=== PATIENT | female | born 1950 | race Caucasian/White ===

== ENCOUNTER 2017-02-08 17:38 | Inpatient (IN) ==
--- NOTE | 2017-02-08 18:28 | IRU History & Physical Report ---
[facility] Date: [id number] Chief complaint: My shoulder hurts and I'm weak HPI: Irina was evaluated in her room with her present. She states that she tripped over a dog leash on 01/30/2017 at her home. She fell to the ground fracturing both shoulders. Patient was evaluated and sent to [facility] where she underwent a right reverse total shoulder procedure on February 03, 2017. The left shoulder was not operated upon. However she is very debilitated as a result of this. Cannot really safely use a walker at this point in time. She states that she is highly motivated to get stronger and get back home. She had a closed fracture of the greater tuberosity of the left humerus and a four-part closed fracture dislocation of the right shoulder. Prior to this event she was independent with grooming, bathing, upper and lower extremity dressing, toileting and transfers as well as ambulation. She is now moderate assist for grooming, bathing and maximum assist for upper and lower extremity dressing. She is minimal assist for toileting, transfers and 18. She is maximum assist for walking. She did not use an assistive device at home prior to this. She does have history of morbid obesity with BMI around 49. She has diabetes mellitus type 2 and normally takes metformin. However recently her blood sugars have become less well controlled in the hospital and she has received Humalog in varying doses. She does not check her blood sugars at home but states that her most recent A1c was 6.9%. She has other medical issues including fibromyalgia, depression, chronic low back pain and reflux esophagitis. She is at risk for wound infection. Her morbid obesity increases the complexity of her situation in addition to her bilateral fractures. She reports that she is been disabled for about 5 years on the basis of back pain (no surgery has been performed there), "hiatal hernia", heel pain and knee problems. The following medical conditions are noted and require physician monitoring and treatment. 1. Diabetes type 2 currently requiring insulin at least on a short-term basis. 2. Morbid obesity with BMI 49 3. Fibromyalgia 4. Hypertension 5. Recent shoulder surgery and wound which is at increased risk of infection due to her diabetes and obesity The following therapies will be needed: 1. Physical therapy: for transfers and ambulation and stairs. 2. Occupational therapy: for ADL's and transfers. 3. Dietitian: for diabetic management. 4. Medical management: for the above conditions. 5. 24 hour Rehabilitation Nursing to monitor and address the following: blood sugars, blood pressure, wound monitoring. Review of Systems - Constitutional Constitutional: Absent: fatigue, lethargy - EENMT Eyes: Absent: blurry vision - Cardiovascular Cardiovascular: Absent: chest pain, palpitations, syncope, dyspnea on exertion, edema Vascular: Absent: intermittent claudication - Respiratory Respiratory: Absent: cough, dyspnea, hemoptysis, dyspnea on exertion - Gastrointestinal Gastrointestinal: Present: dyspepsia. Absent: abdominal pain, change in bowel habits, coffee ground emesis, constipation, diarrhea - Neurological Neurological: Absent: abnormal gait, abnormal speech, confusion [facility] Medical History (Last Reviewed 02/01/17 @ 09:09 by Mitchel Olson MD) Diabetes (Acute Medical) High blood pressure (Acute Medical) Thyroid disease (Acute Medical) Hyperlipidemia Fibromyalgia Hypothyroidism Depression Hiatal hernia with abdominal pain Morbid obesity with BMI 49 Decreased hearing Surgical History: Ankle Calcium Removed, Hysterectomy, Bladder Tuck. B S&O with a hysterectomy. Reverse total shoulder procedure on the right Family History: Family History (Last Reviewed 02/01/17 @ 09:09 by Mitchel Olson MD) Mother High blood pressure Kidney disease Cancer Father High blood pressure Liver disease - Social History Smoking status: Never smoker Alcohol intake: current Alcohol intake frequency: a few times a month Household members: spouse Current occupational status: disabled Does patient use chewing tobacco?: No Medications Home Medications Medication Instructions Recorded Confirmed Type THERAGRAM 1 tab PO DAILY #0 08/05/08 History Calcium Carbonate/Vitamin D3 1 tab PO DAILY #0 01/20/11 History (Vitamin D-3 400 Units Tablet) Levothyroxine Tab [Synthroid] 100 mcg PO DAILY #0 01/20/11 History [place] 7.5 mg-acetaminophen 325 mg 1 tab PO Q8H PRN 02/01/17 History tablet esomeprazole magnesium 40 mg 40 mg PO BID #0 cap 02/01/17 History capsule,delayed release metformin 500 mg tablet 500 mg PO BID tab 02/01/17 History nisoldipine ER 17 mg PO 90 Days #90 02/01/17 History tablet,extended release 24 hr ropinirole 0.25 mg tablet 0.5 mg PO DAILY 90 Days tab 02/01/17 History venlafaxine ER 37.5 mg PO 90 Days #90 02/01/17 History capsule,extended release 24 hr Allergies Allergy/AdvReac Type Severity Reaction Status Date / Time cefaclor Allergy Unknown Verified 02/01/17 08:20 ciprofloxacin Allergy Unknown Verified 02/01/17 08:20 Penicillins Allergy Unknown Verified 02/01/17 08:20 prednisone Allergy Unknown Verified 02/01/17 08:20 latex AdvReac Unknown RASH Verified 02/01/17 08:20 Exam - Constitutional Present: no acute distress, morbidly obese - Routine HEENT Exam Head: Present: normocephalic, atraumatic Eye: Present: EOMI, PERRL ENT: Present: mucous membranes moist - Routine Neck Exam Present: supple, full ROM - Routine Respiratory Exam Present: CTA bilaterally - Routine Cardiovascular Exam Present: RRR, S1, S2, no murmur - Routine Abdominal Exam Present: soft, normoactive bowel sounds, non distended, non tender - Routine Extremities Exam Present: no edema. Absent: cyanosis - Routine Skin Exam Present: intact, wounds (right shoulder wound noted but dressing not removed. No surrounding erythema.) - Routine Neurological Exam Present: alert, oriented X3, CN II-XII intact. Absent: sensory deficit, motor deficit - Routine Psychiatric Exam Present: normal affect, normal thought process, cooperative, good insight, good judgment IRU A/P (1) Status post reverse total arthroplasty of right shoulder Current visit: Yes Status: Acute Patient will be trained regarding upper and lower extremity dressing and safe transfers and ambulation. (2) Morbid obesity with BMI of 45.0-49.9, adult Current visit: Yes Status: Chronic (3) Diabetes mellitus type 2 in obese Current visit: Yes Status: Acute She will require close monitoring of her blood sugars in view of the recent usage of insulin. (4) Benign essential hypertension Current visit: Yes Status: Chronic (5) GERD (gastroesophageal reflux disease) Qualifiers: Esophagitis presence: without esophagitis Qualified Code(s): K21.9 - Gastro -esophageal reflux disease without esophagitis Current visit: Yes Status: Acute Patient has frequent episodes of abdominal pain attributed to the reflux. (6) Hypothyroidism (acquired) Current visit: Yes Status: Chronic (7) Hyperlipidemia Qualifiers: Hyperlipidemia type: other hyperlipidemia Qualified Code(s): E78.4 - Other hyperlipidemia Current visit: Yes Status: Acute Transfer records indicate dyslipidemia. She is on a statin. (8) Restless leg syndrome Current visit: Yes Status: Chronic DVT Prophylaxis: SCD's, Lovenox Resuscitation Status: Full Code - Course Hospital Course: Eddie Jordan MD: - Interventions to Obtain Goals Goals Progress/Modifications: Goal is to teach patient to safely perform upper and lower extremity dressing, transfers and ambulation and avoid further falls. We will monitor her blood sugars carefully and work on dietary management. Wound will be monitored for any evidence of infection.
--- NOTE | 2017-02-08 18:40 | IRU 24Hr Post Admit Eval ---
24 Hr Post Admission Physical - Relevant Changes Relevant Changes: No Reviewed: I have reviewed the patient's information and concur with the finding and results of the pre-admission screen. Certification: I certify the patient for rehabilitation. - Patient Condition (1) Status post reverse total arthroplasty of right shoulder Status: Acute Code(s): Z96.611 - Presence of right artificial shoulder joint Classification: Present on IRF Admission, IRF Tx That Should Address Diagnosis, Diagnosis Requiring Medical Follow Up (2) Morbid obesity with BMI of 45.0-49.9, adult Status: Chronic Code(s): E66.01 - Morbid (severe) obesity due to excess calories; Z68.42 - Body mass index (BMI) 45.0-49.9, adult Classification: Present on IRF Admission, Diagnosis Requiring Medical Follow Up (3) Diabetes mellitus type 2 in obese Status: Chronic Code(s): E11.69 - Type 2 diabetes mellitus with other specified complication; E66.9 - Obesity, unspecified Classification: Present on IRF Admission, Diagnosis Requiring Medical Follow Up , Other Contributing Factor (4) Benign essential hypertension Status: Chronic Code(s): I10 - Essential (primary) hypertension Classification: Present on IRF Admission, Diagnosis Requiring Medical Follow Up (5) GERD (gastroesophageal reflux disease) Status: Acute Qualifiers: Esophagitis presence: without esophagitis Qualified Code(s): K21.9 - Gastro -esophageal reflux disease without esophagitis Code(s): K21.9 - Gastro-esophageal reflux disease without esophagitis Classification: Present on IRF Admission, Diagnosis Requiring Medical Follow Up (6) Hypothyroidism (acquired) Status: Chronic Code(s): E03.9 - Hypothyroidism, unspecified Classification: Present on IRF Admission, Diagnosis Requiring Medical Follow Up (7) Hyperlipidemia Status: Acute Qualifiers: Hyperlipidemia type: other hyperlipidemia Qualified Code(s): E78.4 - Other hyperlipidemia Code(s): E78.5 - Hyperlipidemia, unspecified Classification: Present on IRF Admission (8) Restless leg syndrome Status: Chronic Code(s): G25.81 - Restless legs syndrome Classification: Present on IRF Admission, Other Contributing Factor - Prior Functional Status Lives With: Spouse Residence Type: Apartment/Private Home Assitive Devices: None Prior Functional Status: Indep. at home or school - Current Functional Status Failed Alternative Therapy: Arrived from Acute Care Patient Requirements: The patient requires oversight by rehabilitation physician to manage their rehabilitation treatment plan and multidisciplinary approach to care that can only be provided in an IRF and requires a multidisciplinary approach to care, provided by professional PTs, OTs, STs, dieticians, RTs, rehabilitation nurses and is not available in lesser levels of care. Limitiations Req: Mobility Impairment, ADL Impairment, Limited Mobility Physical Therapy Minutes: 90 Occupational Therapy Minutes: 90 Therapy: The patient is to receive therapy at least 5 days a week. - Complications/Comorbidities Barriers to Discharge: Weakness, Pain Control, Medical Limitation - Plan to Avoid Complications Plan to Avoid Complications: The patient cannot receive this care in a lesser intensive setting such as Retirement or Outpatient Therapy due to the patient requiring the following : Diabetes mellitus with recent need for insulin, close monitoring of blood sugars, morbid obesity and need for a multidisciplinary approach in view of bilateral shoulder fractures. .
[2017-02-08] MEDS: Oxycodone/Acetaminophen 5/325 1 TAB PO PRN (20:45)
[2017-02-08 21:38] VITALS: BMI 50.0
[2017-02-08] MEDS: GABAPENTIN 300 MG CAPSULE PO SCH (22:31)
[2017-02-08] MEDS: ROPINIROLE 0.25 MG TABLET PO SCH (22:33)
[2017-02-08] MEDS: ENOXAPARIN 40 MG/0.4 ML INJECTION SQ SCH (22:38)
[2017-02-09] MEDS: Oxycodone/Acetaminophen 5/325 1 TAB PO PRN ×6 (01:49→23:24)
[2017-02-09] MEDS: LEVOTHYROXINE 100 MCG TABLET PO SCH (06:13)
[2017-02-09] MEDS: ENOXAPARIN 40 MG/0.4 ML INJECTION SQ SCH (09:06)
[2017-02-09] MEDS: VENLAFAXINE 37.5 MG TABLET PO SCH ×2 (09:06→17:29)
[2017-02-09] MEDS: GABAPENTIN 300 MG CAPSULE PO SCH ×3 (09:06→21:46)
[2017-02-09] MEDS: MAGNESIUM OXIDE 400 MG TABLET PO SCH (09:06)
[2017-02-09] MEDS: METFORMIN 500 MG TABLET PO SCH ×2 (09:06→17:29)
[2017-02-09] MEDS: NISOLDIPINE ER 20 MG TABLET PO SCH (09:07)
--- NOTE | 2017-02-09 10:38 | IRU Progress Note ---
- Subjective/Serverity of Illness Irina is again evaluated in her room today. Complains of discomfort in both shoulders. Question arose as to weightbearing capability of the left shoulder. I recommended pain being the guide. If she can tolerate the discomfort she may utilize it for dressing etc. Right shoulder is the one that was operated on and that should remain in the sling. She denies any shortness of breath or chest pain. She remains on metformin for her diabetes. Her blood sugars 122. We are monitoring her sugars by fingerstick 4 times daily. No evidence of hypoglycemia nor diarrhea. She does have morbid obesity. Dietitian is consulted in this regard. Recommend reduced total caloric intake. Finally, she does have benign essential hypertension. Her blood pressure is been running a bit high at 170. It now is 150. We will monitor this. If it stays elevated we'll need to adjust her medications. She is just getting started with therapies. Exam Vital Signs: Temperature 97.9 F 02/09/17 09:48 Pulse Rate 79 02/09/17 09:48 Respiratory Rate 16 02/09/17 09:48 Blood Pressure 150/81 H 02/09/17 09:48 Pulse Oximetry 94 02/09/17 09:48 Oxygen Delivery Method Room Air Height: 1.57 m Weight: 124.1 kg Body Mass Index: 50.0 - Constitutional Present: mild distress Comments: The patient is awake, alert and oriented and in no acute distress. Pupils are equal. The neck is supple. Chest: Clear to auscultation bilaterally. Cor: RR with no myra, click nor murmur Abd: soft with normo-active bowel sounds. There are no masses, no tenderness and no guarding. Extremities: No edema is noted. Dressing remains in place in the right upper arm. There is no surrounding erythema. Seems to be stable at present. Results IRU - Labs Labs: Reviewed her laboratory. Hemoglobin 10. White count normal. Blood sugar noted. Sepsis Assessment - Evaluation Sepsis screening result: No Definite Risk IRU A/P (1) Status post reverse total arthroplasty of right shoulder Current visit: Yes Status: Acute Patient's right arm remains in supportive sling and immobilizer. The surrounding area around the wound looks fine. I did not remove the dressing however. Patient is undergoing training with regard to upper and lower extremity dressing in this situation. (2) Morbid obesity with BMI of 45.0-49.9, adult Current visit: Yes Status: Chronic Dietitian to work with patient in this regard. (3) Diabetes mellitus type 2 in obese Current visit: Yes Status: Chronic Blood sugars 122. Her fingerstick sugars will be monitored. (4) Benign essential hypertension Current visit: Yes Status: Chronic Blood pressure is running too high at 150-170. We will monitor for the time being and if it continues we will adjust her medications. (5) GERD (gastroesophageal reflux disease) Qualifiers: Esophagitis presence: without esophagitis Qualified Code(s): K21.9 - Gastro -esophageal reflux disease without esophagitis Current visit: Yes Status: Acute (6) Hypothyroidism (acquired) Current visit: Yes Status: Chronic (7) Hyperlipidemia Qualifiers: Hyperlipidemia type: other hyperlipidemia Qualified Code(s): E78.4 - Other hyperlipidemia Current visit: Yes Status: Acute (8) Restless leg syndrome Current visit: Yes Status: Chronic DVT Prophylaxis: SCD's, Lovenox Resuscitation Status: Full Code - Course Hospital Course: Eddie oJrdan MD: 02/09/17 10:39 Just getting started with therapies. Pain is reasonably well controlled. Blood sugars stable at 122. Blood pressure elevated and we will monitor. - Interventions to Obtain Goals PT Treatment Plan: Balance/Proprioception, Functional Activities, Gait Training , Patient/Family Education, Therapeutic Exercise
--- NOTE | 2017-02-09 10:43 | IRU Plan of Care ---
[facility] Overall Plan of Care - Date Date: 02/09/17 - Patient Impairments (1) Status post reverse total arthroplasty of right shoulder Code(s): Z96.611 - Presence of right artificial shoulder joint Status: Acute Classification: Present on IRF Admission, IRF Tx That Should Address Diagnosis, Diagnosis Requiring Medical Follow Up (2) Morbid obesity with BMI of 45.0-49.9, adult Code(s): E66.01 - Morbid (severe) obesity due to excess calories; Z68.42 - Body mass index (BMI) 45.0-49.9, adult Status: Chronic Classification: Present on IRF Admission, Diagnosis Requiring Medical Follow Up (3) Diabetes mellitus type 2 in obese Code(s): E11.69 - Type 2 diabetes mellitus with other specified complication; E66.9 - Obesity, unspecified Status: Chronic Classification: Present on IRF Admission, Diagnosis Requiring Medical Follow Up , Other Contributing Factor (4) Benign essential hypertension Code(s): I10 - Essential (primary) hypertension Status: Chronic Classification: Present on IRF Admission, Diagnosis Requiring Medical Follow Up (5) GERD (gastroesophageal reflux disease) Qualifiers: Esophagitis presence: without esophagitis Qualified Code(s): K21.9 - Gastro -esophageal reflux disease without esophagitis Code(s): K21.9 - Gastro-esophageal reflux disease without esophagitis Status: Acute Classification: Present on IRF Admission, Diagnosis Requiring Medical Follow Up (6) Hypothyroidism (acquired) Code(s): E03.9 - Hypothyroidism, unspecified Status: Chronic Classification: Present on IRF Admission, Diagnosis Requiring Medical Follow Up (7) Hyperlipidemia Qualifiers: Hyperlipidemia type: other hyperlipidemia Qualified Code(s): E78.4 - Other hyperlipidemia Code(s): E78.5 - Hyperlipidemia, unspecified Status: Acute Classification: Present on IRF Admission (8) Restless leg syndrome Code(s): G25.81 - Restless legs syndrome Status: Chronic Classification: Present on IRF Admission, Other Contributing Factor - Relevant Changes Relevant Changes: No Reviewed: I have reviewed the patient's information and concur with the finding and results of the pre-admission screen. Certification: I certify the patient for rehabilitation. - Medical Prognosis Medical Prognosis: Good Vital Signs: Last Vital Signs Temp 97.9 F 02/09/17 09:48 Pulse 79 02/09/17 09:48 Resp 16 02/09/17 09:48 BP 150/81 H 02/09/17 09:48 Pulse Ox 94 02/09/17 09:48 - Anticipated Interventions Anticipated Interventions: The patient requires inpatient IRF care for PT, OT, and/or ST for residuals remaining from recent bilateral shoulder fractures and reverse total shoulder on the right resulting in muscular weakness and strength deficits. ROM Deficit: Right Upper Extremity, Left Upper Extremity Strength Deficits: Right Upper Extremity, Left Upper Extremity - FIM Ambulation Distance: 140 Toileting Adaptive Equipment: Grab Bars Number of Continent Voids: 1 - Current Functional Status Failed Alternative Therapy: Arrived from Acute Care Patient Requires: The patient requires oversight by rehabilitation physician to manage their rehabilitation treatment plan and multidisciplinary approach to care that can only be provided in an IRF and requires a multidisciplinary approach to care, provided by professional PTs, OTs, STs, dieticians, RTs, rehabilitation nurses and is not available in lesser levels of care. Physical Therapy Minutes: 90 Occupational Therapy Minutes: 90 Therapy: The patient is to receive therapy at least 5 days a week. - Anticipated LOS/Outcomes Anticipated Functional Outcome: Anticipated functional outcome is that the patient will be able to dress herself with minimal assistance in upper and lower extremities. We will also anticipate safe transfers and ambulation in view of her bilateral shoulder fractures. Anticipated DC Destination: Home, Self Residential Safety Plan: The patient will be provided with the development of a Home Safety Plan for return to a home or home-like environment and and to ensure safety post discharge. - Plan to Avoid Complications Barriers to Attaining Goals: Weakness, Endurance, Pain Control Plan to Avoid Complications: The patient cannot receive this care in a lesser intensive setting such as [facility] or Outpatient Therapy due to the patient requiring the following ; diabetes mellitus with recent use of insulin while at outside hospital, need for close monitoring of blood sugars and blood pressure, morbid obesity decreasing her ability to ambulate and transfer and impairing her functional improvement at present. .
--- NOTE | 2017-02-09 13:28 | Consult Note ---
<Nancy Kamara - Last Filed: 02/09/17 13:01> Consult Information - Data of Consult Patient: new to practice Consult date: 02/09/17 Requesting Physician: Eddie Jordan MD Primary Care Provider: James Cho MD Family Provider: James Cho MD - Consult Narrative Reason for consult: medical management History of present illness: Irina Mejia is a pleasant 66-year-old female who was directly admitted to [facility] on 02/08/17 for continuation of intensive rehabilitation following bilateral shoulder fractures. She reports that on 01/30/17 she was taking the dogs out and the dog leash got caught around her foot, causing her to fall and land on the lawnmower. She denies any head injury or loss of consciousness. No proceeding symptoms prior to her fall. She was transported to [facility] via EMS for further evaluation and found to have a closed fracture of the greater tuberosity of the left humerus and a four-part closed dislocated fracture of the right shoulder. She was sent home from [place] with the plan to follow up with Dr. Hensley in clinic. She was seen by Dr. Hensley on 02/02 and scheduled for surgery the next day at [facility] in [place]. On 02/03 she underwent a reverse total arthroplasty of the right shoulder. The left shoulder was not operated upon. She reports that prior to her fall, she was very independent, living in a house with her . She has a history of type II diabetes for which she takes metformin. During her hospitalization at [place], she struggled with blood sugar control and subsequently required insulin , which she states she has never needed previously. She reports that her A1c in January 2017 was 6.9. She was found to be a good candidate for intensive rehabilitation and was accepted to [facility] for continued therapy and close medical supervision to help her regain her strength and independence necessary for her to go home with her spouse. The hospitalist service was consulted for medical management as she has a history of diabetes, hyeprtension, fibromyalgia , depression, GERD and chronic low back pain. On the exam, she is seen while sitting in her room, watching TV. She reports that overall, she is doing well. She expresses some frustration with her sling on her right arm, stating that her elbow keeps sliding out. She is optimistic that "they" have figured it out and the problem is now resolved with some repositioning. Her appetite is good and her bowels are moving. She states that therapy is going well, but she still feels very limited in light of her immobilized shoulder and the pain with movement in her left shoulder. She is alert and orientated x 3 and in no apparent distress. Cardiac exam reveals regular rate and rhythm and lungs are clear to auscultation bilaterally. Abdomen is obese, soft, nontender with active bowel sounds. Right shoulder is immobilized in sling. Limited ROM of left shoulder due to pain. N/V intact to bilateral upper and lower extremities and 2+ pedal and radial pulses bilaterally. 1+ edema noted to bilateral lower extremities. [facility] Patient Stated Medical History Type II diabetes. Morbid obesity with BMI >40. Fibromyalgia. Hypertension. Depression. Hypothyroidism. Dyslipidemia. Restless leg syndrome. Surgical History: Ankle Calcium Removed, 2006. Total Hysterectomy, 1994. Bladder Tuck, 1994.. Reverse total shoulder procedure on the right, 02/03/17. Family History: Family History Mother - , age 62. High blood pressure Kidney disease Cancer - brain. Father - , age 72. High blood pressure Liver disease secondary to alcohol abuse. - Social History Smoking status: Never smoker Substance use type: does not use Alcohol intake frequency: a few times a month (beer) Last drink: unknown Housing: house Household members: significant other Current occupational status: disabled (secondary to chronic back pain) Current residence: Apartment/Private Home Social history: PCP - Dr. Cho. Ortho - Dr. Hensley. Review of Systems Comprehensive ROS: completed and no additional positive findings except those as stated - Constitutional Constitutional: Absent: fever(s), night sweats - EENMT Eyes: Absent: change in vision, photophobia Balance: Absent: falling to one side Nose: Absent: nosebleeds Mouth/Throat: Absent: sore throat, changes in swallowing, dry mouth - Cardiovascular Cardiovascular: Absent: chest pain, palpitations, syncope, dyspnea on exertion Rhythm: Present: regular rhythm Vascular: Present: pedal edema. Absent: intermittent claudication - Respiratory Respiratory: Absent: cough, dyspnea, hemoptysis, dyspnea on exertion, wheezing - Gastrointestinal Gastrointestinal: Absent: abdominal pain, diarrhea, nausea, vomiting - Genitourinary Menstruation: post hysterectomy - Musculoskeletal Musculoskeletal: Present: back pain (chronic), limited range of motion. Absent : deformity - Integumentary/Breasts Integumentary: Absent: rash - Neurological Neurological: Present: restless legs. Absent: convulsions, dizziness, headache( s), memory loss - Psychiatric Psychiatric: Present: anxiety, depression - Endocrine Endocrine: Absent: palpitations, polydipsia, polyphagia, polyuria Medications Home Medications Medication Instructions Recorded Confirmed Type Levothyroxine Tab [Synthroid] 0.1 mg PO ACB #0 01/20/11 02/08/17 History metformin 500 mg tablet 500 mg PO BIDWM tab 02/01/17 02/08/17 History nisoldipine ER 17 mg 17 mg PO DAILY 90 Days #90 02/01/17 02/08/17 History tablet,extended release 24 hr ropinirole 0.25 mg tablet 0.25 mg PO HS 90 Days tab 02/01/17 02/08/17 History venlafaxine ER 37.5 mg 37.5 tab PO BID 90 Days #90 02/01/17 02/08/17 History capsule,extended release 24 hr Cholecalciferol (Vitamin D3) 1 tab PO DAILY 02/08/17 02/08/17 History [Vitamin D3] Gabapentin 300 mg PO TID 02/08/17 02/08/17 History Magnesium 30 mg PO DAILY 02/08/17 02/08/17 History Oxycodone HCl/Acetaminophen 1 - 2 tab PO Q4HPRN PRN 02/08/17 02/08/17 History [Percocet 5-325 mg Tablet] Valsartan/Hctz 160/12.5 [Diovan 1 tab PO DAILY 02/08/17 02/08/17 History Hct 160/12.5] Allergies Allergy/AdvReac Type Severity Reaction Status Date / Time cefaclor Allergy Unknown Verified 02/09/17 06:57 ciprofloxacin Allergy Unknown Verified 02/09/17 06:57 Penicillins Allergy Unknown Verified 02/09/17 06:57 prednisone Allergy Unknown Verified 02/09/17 06:57 lactose AdvReac Unknown Diarrhea Verified 02/09/17 06:57 latex AdvReac Unknown RASH Verified 02/09/17 06:57 Exam Vital Signs: Temperature 97.9 F 02/09/17 09:48 Pulse Rate 79 02/09/17 09:48 Respiratory Rate 16 02/09/17 09:48 Blood Pressure 150/81 H 02/09/17 09:48 Pulse Oximetry 94 02/09/17 09:48 Oxygen Delivery Method Room Air Height: 5 ft 2 in Weight: 273 lb 9.498 oz Body Mass Index: 50.0 - Constitutional Present: no acute distress, well nourished, well developed, morbidly obese, cooperative - Routine HEENT Exam Head: Present: normocephalic, atraumatic Eye: Present: PERRL. Absent: conjunctival icterus ENT: Present: mucous membranes moist, oropharynx clear. Absent: dentition normal Comments: dentures - Routine Neck Exam Present: supple, full ROM, trachea midline - Routine Respiratory Exam Present: CTA bilaterally. Absent: stridor, wheezes, crackles - Routine Cardiovascular Exam Present: RRR, S1, S2, no murmur - Routine Abdominal Exam Present: soft, normoactive bowel sounds, non distended, non tender - Routine Extremities Exam Present: edema (1+ bilateral), pulses intact (2+ radial and pedal bilaterally), normal capillary refill Comments: immobilizer to right shoulder noted. - Routine Back/Spine/Pelvis Exam Back/Spine: Present: full ROM. Absent: vertebral tenderness - Routine Skin Exam Present: intact, dry, warm. Absent: jaundice - Routine Neurological Exam Present: alert, oriented X3, normal speech. Absent: facial asymmetry limited ROM of left shoulder due to pain/fracture. No movement to right shoulder due to immobilizer present. - Routine Psychiatric Exam Present: normal affect, cooperative Results - Labs CBC & Chem 7: 02/09/17 06:06 02/09/17 06:06 Assessment and Plan (1) Status post reverse total arthroplasty of right shoulder Current visit: Yes Status: Acute (2) Morbid obesity with BMI of 45.0-49.9, adult Current visit: Yes Status: Chronic (3) Diabetes mellitus type 2 in obese Current visit: Yes Status: Chronic (4) Benign essential hypertension Current visit: Yes Status: Chronic (5) GERD (gastroesophageal reflux disease) Current visit: Yes Status: Chronic (6) Hypothyroidism (acquired) Current visit: Yes Status: Chronic (7) Hyperlipidemia Current visit: Yes Status: Chronic (8) Restless leg syndrome Current visit: Yes Status: Chronic DVT Prophylaxis: SCD's, Lovenox GI Prophylaxis: Protonix Resuscitation Status: Full Code Assessment and Plan: 02/09/17 - Anh. IMPRESSION: S/P reverse total arthroplasty of right shoulder. * Underwent surgery on right shoulder only by Dr. Hensley at [place] on 02/03. Recommends follow up in clinic on or around 02/17. Patient family to call for appointment. * Agree with admission to IRU for intensive rehabilitation and close medical monitoring to improve strength and functional ability. Provide safe and supportive environment. Encourage participation in therapies. Pain control per Dr. Jordan. Bowel motivation to prevent constipation in light of narcotic pain medications. Lovenox for DVT prophylaxis. Anemia, post-op, acute. * Present prior to admission per records from [place]. Hemoglobin on admission was 10.6. Patient remains asymptomatic. Continue to monitor trends and will recheck on 02/10 to monitor blood counts. Bilateral shoulder fractures secondary to mechanical fall, acute. * Bilateral shoulder fractures. No surgery to left shoulder. Keep right shoulder immobilized per records. Monitor surgical incision site for signs of infection in light of patient's morbid obesity and diabetes. Morbid obesity with BMI >45, chronic. * Carb controlled diet at 1800 cals. Consult dietary for additional recommendations. Obesity increases patient's risk for complications and infection. Monitor closely. Diabetes, Type II, chronic. * Continue home metformin. Monitor blood sugars closely and sliding scale insulin as indicated. Carb controlled diet at 1800kcal. Will recheck BMP on to monitor electrolytes and renal function. Hypertension, chronic. * Blood pressure stable. Monitor closely. Continue home medications including nisoldipine and Valsartan/HCTZ. Monitor daily weights for signs of fluid overload. GERD, chronic. * Continue home PPI for GI protection and GERD. Acquired hypothyroidism, chronic. * Continue home synthroid. Restless leg syndrome, chronic. * Continue home Requip. Pain control per Dr. Jordan. Fibromyalgia and chronic low back pain, chronic. * Pain control per Dr. Jordan. Depression, chronic. * Continue home Effexor. Upon discharge, patient's care is to be returned to her PCP, Dr. Cho. - Time spent with patient greater than 35 minutes Hospital Course Summary Disclaimer: The visit summary below is not to be considered part of the above Progress Note. Hospital Course: 02/09/17 13:53 IMPRESSION: S/P reverse total arthroplasty of right shoulder. * Underwent surgery on right shoulder only by Dr. Hensley at [place] on 02/03. Recommends follow up in clinic on or around 02/17. Patient family to call for appointment. * Agree with admission to IRU for intensive rehabilitation and close medical monitoring to improve strength and functional ability. Provide safe and supportive environment. Encourage participation in therapies. Pain control per Dr. Jordan. Bowel motivation to prevent constipation in light of narcotic pain medications. Lovenox for DVT prophylaxis. Anemia, post-op, acute. * Present prior to admission per records from [place]. Hemoglobin on admission was 10.6. Patient remains asymptomatic. Continue to monitor trends and will recheck on 02/10 to monitor blood counts. Bilateral shoulder fractures secondary to mechanical fall, acute. * Bilateral shoulder fractures. No surgery to left shoulder. Keep right shoulder immobilized per records. Monitor surgical incision site for signs of infection in light of patient's morbid obesity and diabetes. Morbid obesity with BMI >45, chronic. * Carb controlled diet at 1800 cals. Consult dietary for additional recommendations. Obesity increases patient's risk for complications and infection. Monitor closely. Diabetes, Type II, chronic. * Continue home metformin. Monitor blood sugars closely and sliding scale insulin as indicated. Carb controlled diet at 1800kcal. Will recheck BMP on to monitor electrolytes and renal function. Hypertension, chronic. * Blood pressure stable. Monitor closely. Continue home medications including nisoldipine and Valsartan/HCTZ. Monitor daily weights for signs of fluid overload. GERD, chronic. * Continue home PPI for GI protection and GERD. Acquired hypothyroidism, chronic. * Continue home synthroid. Restless leg syndrome, chronic. * Continue home Requip. Pain control per Dr. Jordan. Fibromyalgia and chronic low back pain, chronic. * Pain control per Dr. Jordan. Depression, chronic. * Continue home Effexor. Upon discharge, patient's care is to be returned to her PCP, Dr. Cho. Sepsis Assessment - Evaluation Sepsis screening result: No Definite Risk <Juana Richard - Last Filed: 02/09/17 20:15> Consult Information - Data of Consult Requesting Physician: Eddie Jordan MD Primary Care Provider: James Cho MD Family Provider: James Cho MD [facility] Patient Stated Medical History Other HEENT Yes: SAD, 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 Hypertension Yes Other Respiratory Yes: occasional wheezing Diabetes Mellitus Type 2 Yes Constipation No Hx Incontinence No Hx Urinary Tract Infection Yes: not currently Other Yes: bladder sling Other Musculoskeletal Yes: fibromyalgia Shingles Yes Clinic Medical History (Last Reviewed 02/01/17 @ 09:09 by Mitchel Olson MD) Diabetes (Acute Medical) High blood pressure (Acute Medical) Thyroid disease (Acute Medical) Family History: Family History (Last Reviewed 02/01/17 @ 09:09 by Mitchel Olson MD) Mother High blood pressure Kidney disease Cancer Father High blood pressure Liver disease Exam Vital Signs: Temperature 97.8 F 02/09/17 16:00 Pulse Rate 73 02/09/17 16:00 Respiratory Rate 16 02/09/17 16:22 Blood Pressure 141/66 H 02/09/17 16:00 Pulse Oximetry 98 02/09/17 16:00 Oxygen Delivery Method Room Air Height: 1.57 m Weight: 124.1 kg Results - Labs CBC & Chem 7: 02/09/17 06:06 02/09/17 06:06 Assessment and Plan (1) Status post reverse total arthroplasty of right shoulder Current visit: Yes Status: Acute (2) Morbid obesity with BMI of 45.0-49.9, adult Current visit: Yes Status: Chronic (3) Diabetes mellitus type 2 in obese Current visit: Yes Status: Chronic (4) Benign essential hypertension Current visit: Yes Status: Chronic (5) GERD (gastroesophageal reflux disease) Current visit: Yes Status: Chronic (6) Hypothyroidism (acquired) Current visit: Yes Status: Chronic (7) Hyperlipidemia Current visit: Yes Status: Chronic (8) Restless leg syndrome Current visit: Yes Status: Chronic Assessment and Plan: 02/09/2017-I reviewed this chart, the patient history, and the PALLIATIVE SENIOR NP's/PA's documented findings as above. We discussed and formulated the assessment and plan as above with the additions below. I have seen and examined the patient independently.-Dr. Richard Patient was seen earlier this evening. She states she is getting along pretty well. Pain control in her shoulder is okay. She denies any chest pain or shortness of breath. She states she is able to get up and walk without feeling lightheaded or short of breath. Appetite is slowly improving. She denies any difficulty urinating. She denies constipation or diarrhea. On exam she is alert and oriented 3 and in no acute distress. Chest is clear to auscultation. Cardiovascular reveals a regular rate and rhythm. Abdomen is soft and nontender. Right upper extremity is in a sophisticated sling. She has good strength in her bilateral hands. Legs are free of edema. Skin is warm and dry and without rashes. Overall, the patient appears to be doing quite well postoperatively. I agree with treatment of her chronic medical issues as detailed above. Hospital Course Summary Disclaimer: The visit summary below is not to be considered part of the above Progress Note.
[2017-02-09] MEDS: INSULIN ASPART 100unit/ml INJECTION SQ PRN ×2 (14:45→19:25)
[2017-02-09] MEDS: ROPINIROLE 0.25 MG TABLET PO SCH (21:46)
[2017-02-10] MEDS: Oxycodone/Acetaminophen 5/325 1 TAB PO PRN ×4 (05:36→17:59)
[2017-02-10] MEDS: LEVOTHYROXINE 100 MCG TABLET PO SCH (05:36)
[2017-02-10] MEDS: ENOXAPARIN 40 MG/0.4 ML INJECTION SQ SCH (08:55)
[2017-02-10] MEDS: MAGNESIUM OXIDE 400 MG TABLET PO SCH (08:55)
[2017-02-10] MEDS: VENLAFAXINE 37.5 MG TABLET PO SCH ×2 (08:55→17:59)
[2017-02-10] MEDS: METFORMIN 500 MG TABLET PO SCH ×2 (08:55→17:59)
[2017-02-10] MEDS: GABAPENTIN 300 MG CAPSULE PO SCH ×3 (08:56→21:33)
[2017-02-10] MEDS: NISOLDIPINE ER 20 MG TABLET PO SCH (08:56)
[2017-02-10] MEDS ORDERED: CALCIUM CARBONATE Chewable 500mg TABLET PO PRN ×2 (10:38→11:15)
--- NOTE | 2017-02-10 11:48 | IRU Progress Note ---
- Subjective/Serverity of Illness Irina was examined and evaluated in the dining area by herself. She reports that she was in severe pain yesterday when she was working with therapy in order to dress herself. Pain is in the right shoulder which was the operated shoulder. She is in tears about this. She does have oxycodone ordered as needed. However we will change it to be given twice daily routinely prior to her therapy sessions. Also discussed with therapist directly. Her blood sugars appear to be well-controlled. We will initiate fingerstick blood sugars 3 times daily. Her blood pressure is slightly elevated but this may be related to her pain management. She does have major multiple trauma related to bilateral shoulder fractures. Pain in the left shoulder (nonoperated side) noted but is not as bad as the right side. I have instructed the therapists that they can do range of motion gently on this including some degree of weightbearing as long as it does not cause significant discomfort. Exam Vital Signs: Temperature 98.1 F 02/10/17 08:00 Pulse Rate 76 02/10/17 08:00 Respiratory Rate 18 02/10/17 08:00 Blood Pressure 159/76 H 02/10/17 08:00 Pulse Oximetry 97 02/10/17 08:00 Oxygen Delivery Method Room Air Height: 1.57 m Weight: 124.1 kg Body Mass Index: 50.0 - Constitutional Present: moderate distress Comments: The patient is awake, alert and oriented but is tearful and also fearful of working with therapy because the pain in the right shoulder. Pupils are equal. The neck is supple. Chest: Clear to auscultation bilaterally. Cor: RR with no myra, click nor murmur Abd: soft with normo-active bowel sounds. Extremities: No edema is noted. There are good pulses in both ankles. No cyanosis is present. The patient's wound in the right shoulder is clean and dry and without surrounding inflammation. Did not remove dressing at present. Sepsis Assessment - Evaluation Sepsis screening result: No Definite Risk IRU A/P (1) Status post reverse total arthroplasty of right shoulder Current visit: Yes Status: Acute Shoulder appears to be stable. Pain limiting progress. We will modify the times of the medications so that she can receive the Percocet just prior to therapy. I also discussed with occupational therapy. (2) Morbid obesity with BMI of 45.0-49.9, adult Current visit: Yes Status: Chronic Caloric restriction encouraged. (3) Diabetes mellitus type 2 in obese Current visit: Yes Status: Chronic Blood sugars are stable. However we will initiate blood glucose monitoring 3 times daily to get a better idea of what they are running. (4) Benign essential hypertension Current visit: Yes Status: Chronic Blood pressure is running too high. However this may be related to pain management and for this reason we will modify the pain regimen and then reassess. (5) GERD (gastroesophageal reflux disease) Qualifiers: Esophagitis presence: without esophagitis Qualified Code(s): K21.9 - Gastro -esophageal reflux disease without esophagitis Current visit: Yes Status: Chronic (6) Hypothyroidism (acquired) Current visit: Yes Status: Chronic (7) Hyperlipidemia Qualifiers: Hyperlipidemia type: other hyperlipidemia Qualified Code(s): E78.4 - Other hyperlipidemia Current visit: Yes Status: Chronic (8) Restless leg syndrome Current visit: Yes Status: Chronic DVT Prophylaxis: SCD's, Lovenox Resuscitation Status: Full Code - Course Hospital Course: Eddie Jordan MD: 02/09/17 10:39 Just getting started with therapies. Pain is reasonably well controlled. Blood sugars stable at 122. Blood pressure elevated and we will monitor. 02/10/17 11:48 Patient is tearful and fearful regarding dressing because of pain in the right shoulder. Pain management will be modified in this regard and give her Percocet prior to each therapy session. We will monitor her blood pressures which are running too high at present. Initiate blood glucose monitoring 3 times daily. - Interventions to Obtain Goals PT Treatment Plan: Balance/Proprioception, Functional Activities, Gait Training , Patient/Family Education, Therapeutic Exercise OT Treatment Plan: ADL (Basic Care), Balance Training, IADL, Pt./Family Education, Ther. Exercise for ADL Goals Progress/Modifications: Initiated blood glucose monitoring 3 times daily. Modified Percocet to be given just prior to each therapy session plus as needed. Patient encouraged and told her that we would work with her regarding the pain.
--- NOTE | 2017-02-10 12:19 | Progress Note ---
<Gali Washburn - Last Filed: 02/10/17 13:39> Subjective: Patient is seen in her room today during therapy. She complains of some indigestion which she states is normal for her at times. Previously took Nexium but hasn't been on it for quite awhile. Her GERD symptoms are not bothersome to her on a regular basis. Otherwise, she has no complaints other than her shoulder pain, but reports that is getting better. Dr. Jordan has ordered accuchecks TID to assess her BS's. She is currently on metformin and sliding scale insulin. FBS was 92. Post lunch reading was 158. Blood pressure has been slightly elevated (159-170/70's)but is likely secondary to pain. She continues on home dose of valsartan HCTZ and nisoldipine. Objective Vital signs: Temperature 98.1 F 02/10/17 08:00 Pulse Rate 76 02/10/17 08:00 Respiratory Rate 18 02/10/17 08:00 Blood Pressure 159/76 H 02/10/17 08:00 Pulse Oximetry 97 02/10/17 08:00 Oxygen Delivery Method Room Air Body Mass Index: 50.0 - Constitutional Present: no acute distress, well nourished, well developed, morbidly obese - Routine HEENT Exam Head: Present: normocephalic, atraumatic Eye: Present: EOMI ENT: Present: mucous membranes moist, dentition normal - Routine Respiratory Exam Present: CTA bilaterally. Absent: wheezes - Routine Cardiovascular Exam Present: RRR, S1, S2. Absent: murmur - Routine Abdominal Exam Present: soft, normoactive bowel sounds, non distended. Absent: tenderness - Routine Extremities Exam Present: no edema, normal capillary refill - Routine Skin Exam Present: dry, warm - Routine Neurological Exam Present: alert, oriented X3, CN II-XII intact - Routine Lymphatic Exam Lymphatic: Absent: adenopathy - Routine Psychiatric Exam Present: normal affect, normal thought process Results - Labs CBC & Chem 7: 02/10/17 05:07 02/10/17 05:07 Assessment and Plan (1) Status post reverse total arthroplasty of right shoulder Current visit: Yes Status: Acute (2) Morbid obesity with BMI of 45.0-49.9, adult Current visit: No Status: Chronic (3) Diabetes mellitus type 2 in obese Current visit: Yes Status: Chronic (4) Benign essential hypertension Current visit: Yes Status: Chronic (5) GERD (gastroesophageal reflux disease) Current visit: Yes Status: Chronic (6) Hypothyroidism (acquired) Current visit: No Status: Chronic (7) Hyperlipidemia Current visit: No Status: Chronic (8) Restless leg syndrome Current visit: No Status: Chronic Assessment and Plan: Assessment: S/P reverse total arthroplasty of right shoulder. Anemia, postop, acute Bilateral shoulder fracture secondary to mechanical fall, acute Morbid obesity with BMI greater than 45, chronic Diabetes, type II, chronic Hypertension, chronic GERD, chronic Acquired hypothyroidism, chronic Restless leg syndrome, chronic Fibromyalgia and chronic low back pain, chronic Depression, chronic PLAN: Bilateral shoulder fractures secondary to fall * No surgery to left shoulder. Keep right shoulder immobilized per records. Diabetes, Type II, chronic. * Continue home metformin. Continue accucheks per Dr. Jordan and sliding scale insulin as indicated. Carb controlled diet at 1800kcal. Hypertension, chronic. * Monitor closely. Continue home medications including nisoldipine and Valsartan/HCTZ. GERD, chronic. * She declines PPI. Has TUMS ordered PRN. Consider starting PPI should she have increasing or continued symptoms. Sepsis Assessment - Evaluation Sepsis screening result: No Definite Risk Hospital Course Summary Disclaimer: The visit summary below is not to be considered part of the above Progress Note. Hospital Course: 02/09/17 13:53 IMPRESSION/PLAN: S/P reverse total arthroplasty of right shoulder. * Underwent surgery on right shoulder only by Dr. Hensley at [facility] on 02/03. Recommends follow up in clinic on or around 02/17. Patient family to call for appointment. * Agree with admission to IRU for intensive rehabilitation and close medical monitoring to improve strength and functional ability. Provide safe and supportive environment. Encourage participation in therapies. Pain control per Dr. Jordan. Bowel motivation to prevent constipation in light of narcotic pain medications. Lovenox for DVT prophylaxis. Anemia, post-op, acute. * Present prior to admission per records from [facility]. Hemoglobin on admission was 10.6. Patient remains asymptomatic. Continue to monitor trends and will recheck on 02/10 to monitor blood counts. Bilateral shoulder fractures secondary to mechanical fall, acute. * Bilateral shoulder fractures. No surgery to left shoulder. Keep right shoulder immobilized per records. Monitor surgical incision site for signs of infection in light of patient's morbid obesity and diabetes. Morbid obesity with BMI >45, chronic. * Carb controlled diet at 1800 cals. Consult dietary for additional recommendations. Obesity increases patient's risk for complications and infection. Monitor closely. Diabetes, Type II, chronic. * Continue home metformin. Monitor blood sugars closely and sliding scale insulin as indicated. Carb controlled diet at 1800kcal. Will recheck BMP on to monitor electrolytes and renal function. Hypertension, chronic. * Blood pressure stable. Monitor closely. Continue home medications including nisoldipine and Valsartan/HCTZ. Monitor daily weights for signs of fluid overload. GERD, chronic. * Continue home PPI for GI protection and GERD. Acquired hypothyroidism, chronic. * Continue home synthroid. Restless leg syndrome, chronic. * Continue home Requip. Pain control per Dr. Jordan. Fibromyalgia and chronic low back pain, chronic. * Pain control per Dr. Jordan. Depression, chronic. * Continue home Effexor. Upon discharge, patient's care is to be returned to her PCP, Dr. Cho. 02/10/17 Day #2 IRU Bilateral shoulder fractures secondary to fall * No surgery to left shoulder. Keep right shoulder immobilized per records. Diabetes, Type II, chronic. * Continue home metformin. Continue accucheks per Dr. Jordan and sliding scale insulin as indicated. Carb controlled diet at 1800kcal. Hypertension, chronic. * Monitor closely. Continue home medications including nisoldipine and Valsartan/HCTZ. GERD, chronic. * She declines PPI. Has TUMS ordered PRN. Consider starting PPI should she have increasing or continued symptoms. <Juana Richard - Last Filed: 02/10/17 19:51> Objective Vital signs: Temperature 98.0 F 02/10/17 15:00 Pulse Rate 76 02/10/17 15:00 Respiratory Rate 24 02/10/17 15:00 Blood Pressure 133/60 02/10/17 15:00 Pulse Oximetry 98 02/10/17 15:00 Oxygen Delivery Method Room Air Results - Labs CBC & Chem 7: 02/10/17 05:07 02/10/17 05:07 Assessment and Plan (1) Status post reverse total arthroplasty of right shoulder Current visit: Yes Status: Acute (2) Morbid obesity with BMI of 45.0-49.9, adult Current visit: No Status: Chronic (3) Diabetes mellitus type 2 in obese Current visit: Yes Status: Chronic (4) Benign essential hypertension Current visit: Yes Status: Chronic (5) GERD (gastroesophageal reflux disease) Current visit: Yes Status: Chronic (6) Hypothyroidism (acquired) Current visit: No Status: Chronic (7) Hyperlipidemia Current visit: No Status: Chronic (8) Restless leg syndrome Current visit: No Status: Chronic Assessment and Plan: 02/10/2017-I reviewed this chart, the patient history, and the HEAD GRINDER's/PA's documented findings as above. We discussed and formulated the assessment and plan as above with the additions below. The patient was seen and examined independently.-Dr. Richard Patient was seen this evening after supper. She states her appetite is good. She states she had an episode after finishing lunch while she was sitting at the lunch table. She had sudden onset of flushing, sweating, and felt very hot. She also felt like her vision was getting blurry and felt like she might pass out. At the time her blood pressure and heart rate were unremarkable. Blood glucose was 151. She was not on telemetry. She states she had to get back to her room in a wheelchair. She states she rested for a while and then felt fine. She did not notice any palpitations. She denied any vertigo or dizziness. She states that she does have hot flashes but symptoms are not usually so severe. However, she states she has had these severe episodes with flushing, sweating, feeling very hot, and lightheaded off and on for 10 years. She states she has about 2 episodes a month. She states that she is actually passed out with these episodes about 5 times. She thinks she had a cardiac evaluation regarding this, but is uncertain. Currently she feels fine and has had no recurrent episodes today. She was able to proceed with her usual afternoon therapy session without difficulties. On exam the patient is alert and oriented 3 and in no acute distress. Chest is clear to auscultation. Cardiovascular reveals a regular rate and rhythm. Abdomen is soft and nontender. Extremities reveal no edema. Regarding episode of flushing, sweating, and lightheadedness, will place the patient on telemetry and check orthostatics. We'll check a TSH. Further evaluation may be indicated in the future. Hospital Course Summary Disclaimer: The visit summary below is not to be considered part of the above Progress Note.
[2017-02-10] MEDS: ROPINIROLE 0.25 MG TABLET PO SCH (21:34)
[2017-02-10] MEDS: Oxycodone *IR* 5 MG TABLET PO SCH (21:34)
[2017-02-11] MEDS: LEVOTHYROXINE 100 MCG TABLET PO SCH (05:50)
[2017-02-11] MEDS: Oxycodone *IR* 5 MG TABLET PO SCH ×2 (08:39→13:58)
[2017-02-11] MEDS: VENLAFAXINE 37.5 MG TABLET PO SCH ×2 (08:40→17:49)
[2017-02-11] MEDS: METFORMIN 500 MG TABLET PO SCH ×2 (08:40→17:49)
[2017-02-11] MEDS: NISOLDIPINE ER 20 MG TABLET PO SCH (08:40)
[2017-02-11] MEDS: MAGNESIUM OXIDE 400 MG TABLET PO SCH (08:42)
[2017-02-11] MEDS: ENOXAPARIN 40 MG/0.4 ML INJECTION SQ SCH (08:42)
[2017-02-11] MEDS: GABAPENTIN 300 MG CAPSULE PO SCH ×3 (08:42→21:38)
--- NOTE | 2017-02-11 09:11 | Progress Note ---
<Gali Washburn - Last Filed: 02/11/17 09:06> Subjective: Patient is seen today in the dining room eating breakfast. She is having quite a bit of pain with her shoulders. Yesterday she had an episode after lunch where she had intense flushing, felt light headed, and felt like she could pass out. She states she has these episodes periodically. She estimates she has 1-2 of these episodes at least every 3-4 months. She states this has happened over the past 10 years, and at least 5 times she has passed out during these episodes. She doesn't have associated chest pain or palpitations. She's never had this worked up to her knowledge. She thinks she had an adenosine thallium study approximately 7 years ago, which was negative. She also had a complaint of heartburn yesterday. She states this did resolve with Tums. Has been on a PPI routinely in the past, but not for several years. She states the heartburn is not daily, it just depends on what she eats. Her bowels are moving, and she has no urinary symptoms. Objective Vital signs: Temperature 98.6 F 02/11/17 08:43 Pulse Rate 77 02/11/17 08:45 Respiratory Rate 16 02/11/17 08:43 Blood Pressure 158/71 H 02/11/17 08:45 Pulse Oximetry 98 02/11/17 08:43 Oxygen Delivery Method Room Air Body Mass Index: 50.0 - Constitutional Present: no acute distress, well nourished, well developed, obese - Routine HEENT Exam Head: Present: normocephalic, atraumatic Eye: Present: EOMI ENT: Present: mucous membranes moist - Routine Respiratory Exam Present: CTA bilaterally. Absent: wheezes - Routine Cardiovascular Exam Present: RRR, S1, S2. Absent: murmur - Routine Abdominal Exam Present: soft, normoactive bowel sounds, non distended. Absent: tenderness - Routine Extremities Exam Present: no edema, normal capillary refill - Routine Skin Exam Present: dry, warm - Routine Neurological Exam Present: alert, oriented X3, CN II-XII intact - Routine Lymphatic Exam Lymphatic: Absent: adenopathy - Routine Psychiatric Exam Present: normal affect, normal thought process Results - Labs CBC & Chem 7: 02/10/17 05:07 02/10/17 05:07 Assessment and Plan (1) Status post reverse total arthroplasty of right shoulder Current visit: Yes Status: Acute (2) Morbid obesity with BMI of 45.0-49.9, adult Current visit: No Status: Chronic (3) Diabetes mellitus type 2 in obese Current visit: No Status: Chronic (4) Benign essential hypertension Current visit: No Status: Chronic (5) GERD (gastroesophageal reflux disease) Current visit: Yes Status: Chronic (6) Hypothyroidism (acquired) Current visit: Yes Status: Chronic (7) Hyperlipidemia Current visit: No Status: Chronic (8) Restless leg syndrome Current visit: No Status: Chronic Assessment and Plan: Impression: Intermittent episodes of flushing/lightheadedness sometimes with syncope GERD Type II diabetes. Morbid obesity with BMI >40. Fibromyalgia. Hypertension. Depression. Hypothyroidism. Dyslipidemia. Restless leg syndrome. Plan: Regarding episode of flushing, sweating, and lightheadedness, patient was placed on telemetry. CBC, BMP, troponin and TSH are pending. EKG and echocardiogram have been ordered by Dr. Richard and consult to Dr. Woodward has been placed. Phone call was made to eKzia Walden APRN to give her background on the patient. Patient informed and is agreeable. Other chronic problems are stable. Sepsis Assessment - Evaluation Sepsis screening result: No Definite Risk Hospital Course Summary Disclaimer: The visit summary below is not to be considered part of the above Progress Note. Hospital Course: 02/09/17 13:53 IMPRESSION/PLAN: S/P reverse total arthroplasty of right shoulder. * Underwent surgery on right shoulder only by Dr. Hensley at [facility] on 02/03. Recommends follow up in clinic on or around 02/17. Patient family to call for appointment. * Agree with admission to IRU for intensive rehabilitation and close medical monitoring to improve strength and functional ability. Provide safe and supportive environment. Encourage participation in therapies. Pain control per Dr. Jordan. Bowel motivation to prevent constipation in light of narcotic pain medications. Lovenox for DVT prophylaxis. Anemia, post-op, acute. * Present prior to admission per records from [facility]. Hemoglobin on admission was 10.6. Patient remains asymptomatic. Continue to monitor trends and will recheck on 02/10 to monitor blood counts. Bilateral shoulder fractures secondary to mechanical fall, acute. * Bilateral shoulder fractures. No surgery to left shoulder. Keep right shoulder immobilized per records. Monitor surgical incision site for signs of infection in light of patient's morbid obesity and diabetes. Morbid obesity with BMI >45, chronic. * Carb controlled diet at 1800 cals. Consult dietary for additional recommendations. Obesity increases patient's risk for complications and infection. Monitor closely. Diabetes, Type II, chronic. * Continue home metformin. Monitor blood sugars closely and sliding scale insulin as indicated. Carb controlled diet at 1800kcal. Will recheck BMP on to monitor electrolytes and renal function. Hypertension, chronic. * Blood pressure stable. Monitor closely. Continue home medications including nisoldipine and Valsartan/HCTZ. Monitor daily weights for signs of fluid overload. GERD, chronic. * Continue home PPI for GI protection and GERD. Acquired hypothyroidism, chronic. * Continue home synthroid. Restless leg syndrome, chronic. * Continue home Requip. Pain control per Dr. Jordan. Fibromyalgia and chronic low back pain, chronic. * Pain control per Dr. Jordan. Depression, chronic. * Continue home Effexor. Upon discharge, patient's care is to be returned to her PCP, Dr. Cho. 02/10/17 Day #2 IRU Bilateral shoulder fractures secondary to fall * No surgery to left shoulder. Keep right shoulder immobilized per records. Diabetes, Type II, chronic. * Continue home metformin. Continue accucheks per Dr. Jordan and sliding scale insulin as indicated. Carb controlled diet at 1800kcal. Hypertension, chronic. * Monitor closely. Continue home medications including nisoldipine and Valsartan/HCTZ. GERD, chronic. * She declines PPI. Has TUMS ordered PRN. Consider starting PPI should she have increasing or continued symptoms. 02/11/17 Day #3 IRU Regarding episode of flushing, sweating, and lightheadedness, patient was placed on telemetry. CBC, BMP, troponin and TSH are pending. EKG and echocardiogram have been ordered by Dr. Richard and consult to Dr. Woodward has been placed. Phone call was made to Kezia Walden APRN to give her background on the patient. Patient informed and is agreeable. Other chronic problems are stable. <Juana Richard - Last Filed: 02/11/17 20:23> Objective Vital signs: Temperature 98.6 F 02/11/17 08:43 Pulse Rate 77 02/11/17 08:45 Respiratory Rate 16 02/11/17 08:43 Blood Pressure 158/71 H 02/11/17 08:45 Pulse Oximetry 98 02/11/17 08:43 Oxygen Delivery Method Room Air Results - Labs CBC & Chem 7: 02/11/17 10:27 02/11/17 10:27 Assessment and Plan (1) Status post reverse total arthroplasty of right shoulder Current visit: Yes Status: Acute (2) Morbid obesity with BMI of 45.0-49.9, adult Current visit: No Status: Chronic (3) Diabetes mellitus type 2 in obese Current visit: No Status: Chronic (4) Benign essential hypertension Current visit: No Status: Chronic (5) GERD (gastroesophageal reflux disease) Current visit: Yes Status: Chronic (6) Hypothyroidism (acquired) Current visit: Yes Status: Chronic (7) Hyperlipidemia Current visit: No Status: Chronic (8) Restless leg syndrome Current visit: No Status: Chronic Assessment and Plan: 02/11/2017-I reviewed this chart, the patient history, and the [employer]IATE's/PA's documented findings as above. We discussed and formulated the assessment and plan as above with the additions below. I seen and examined the patient independently.-Dr. Richard The patient told me that she had another episode of feeling sweaty and hot today after sitting down to the lunch table after finishing therapy. She states she felt lightheaded. She states that she told the nurse and had her vital signs and blood sugars monitored and that they were fine. I spoke with the nurse and she stated that the patient minimized her symptoms and said she was just having a hot flash and she does not recall getting vital signs were blood sugar at that specific time. I did encouraged the patient to notify staff whenever she is having an episode and I asked the staff to obtain vital signs, blood sugar and notify telemetry whenever she was having an episode so that we could evaluate whether or not she was having rhythm abnormalities. Otherwise, the patient states she's feeling well and has no complaints. She denies any chest pain or shortness of breath. On exam she is alert and oriented and in no acute distress. Chest is clear to auscultation. Cardiovascular reveals a regular rate and rhythm. Abdomen is obese , soft and nontender. Continue current care plan as above. I did talk with Dr. Camejo after he saw the patient and he recommended continuing on telemetry. Echocardiogram was obtained and did not show any significant abnormalities. Hospital Course Summary Disclaimer: The visit summary below is not to be considered part of the above Progress Note.
[2017-02-11] MEDS: Oxycodone/Acetaminophen 5/325 1 TAB PO PRN ×2 (11:26→21:39)
--- NOTE | 2017-02-11 11:40 | Cardiology Consult Note ---
History of Present Illness Consult date: 02/11/17 <Kezia Walden M - 02/11/17 12:41> Requesting physician: Juana Richard <Kezia Walden M - 02/11/17 12:41> Chief complaint: near syncope <Kezia Walden M - 02/11/17 12:41> History of present illness: Irina is a 66 year old female who was directly admitted to [facility] on 02/08/17 for continuation of intensive rehabilitation following bilateral shoulder fractures. She reports that on 01/30/17 she was taking the dogs out and the dog leash got caught around her foot, causing her to fall and land on the lawnmower. She denies any head injury or loss of consciousness. No proceeding symptoms prior to her fall. She was transported to [facility] via EMS for further evaluation and found to have a closed fracture of the greater tuberosity of the left humerus and a four-part closed dislocated fracture of the right shoulder. She was sent home from [place] with the plan to follow up with Dr. Hensley in clinic. She was seen by Dr. Hensley on 02/02 and scheduled for surgery the next day at [facility] in [place]. On 02/03 she underwent a reverse total arthroplasty of the right shoulder. The left shoulder was not operated upon. She reports that prior to her fall, she was very independent, living in a house with her . She has a history of type II diabetes for which she takes metformin. During her hospitalization at [place], she struggled with blood sugar control and subsequently required insulin , which she states she has never needed previously. She reports that her A1c in January 2017 was 6.9. She was found to be a good candidate for intensive rehabilitation and was accepted to [facility] for continued therapy and close medical supervision to help her regain her strength and independence necessary for her to go home with her spouse. The hospitalist service was consulted for medical management as she has a history of diabetes, hypertension, fibromyalgia , depression, GERD and chronic low back pain. Yesterday after lunch, at approx 1300 patient began to feel as if she was having a hotflash. Her vision blurred , she felt dizzy, and like she was going to "pass out." VS taken at that time were BP 166/81, P 94, O2 sat 97%, temp p7.7, R 18. BGM 154. She reports that this happens a couple of times a month for the past 10 years. The physical therapy staff performed the BPPV test which was positive but unable to position her to the right side due to right shoulder fracture. Symptoms resolved with rest and she proceeded to work with therapy. She was examined in her room on IRU. She denies treatment by any cardiology in the past other than 10 years ago when she had chest pain following a surgery on her leg. At that time she underwent an Adenosine stress test and was told that her heart was good. She denies any history of heart cath, arrhythmia such as atrial fibrillation, palpitations, heart racing or skipping beats. She has not had chest pain recently but did have indigestion yesterday. As she is diabetic a troponin and EKG were obtained by the hospitalist, as well as an echocardiogram. EKG is benign and troponin is negative. <Kezia Walden 02/11/17 14:10> Review of Systems - Constitutional Constitutional: Present: weakness. Absent: chills, fever(s), headache(s) < Kezia Walden 02/11/17 12:41> - EENMT Eyes: Present: as per HPI, change in vision <Kezia Walden 02/11/17 12:41> Balance: Present: vertigo. Absent: falling to one side <Kezia Walden 05/20 12:41> Nose: Absent: nosebleeds <Kezia Walden 02/11/17 12:41> Mouth/Throat: Absent: sore throat, changes in swallowing, dry mouth <Kezia Walden 02/11/17 12:41> - Cardiovascular Cardiovascular: Absent: chest pain, palpitations <Kezia Walden 02/11/17 12 :41> Rhythm: Present: regular rhythm <Kezia Walden 02/11/17 12:41> Vascular: Present: pedal edema. Absent: intermittent claudication <Kezia Walden 02/11/17 12:41> - Respiratory Respiratory: Absent: cough, dyspnea, dyspnea on exertion <Kezia Walden 05/20 12:41> - Gastrointestinal Gastrointestinal: Absent: diarrhea, nausea, vomiting <Kezia Walden Deon - 12:41> - Genitourinary Genitourinary: Absent: dysuria <IramKezia moeller Deon 02/11/17 12:41> Menstruation: post hysterectomy <IramKezia moeller 02/11/17 12:41> - Musculoskeletal Musculoskeletal: Present: as per HPI, joint swelling, limited range of motion <IramKezia moeller 02/11/17 12:41> - Integumentary/Breasts Integumentary: Present: as per HPI, swelling <IramKezia moeller Deon 02/11/17 12:41> - Neurological Neurological: Present: as per HPI, dizziness, vertigo, weakness <IramKezia moeller Deon 02/11/17 12:41> - Endocrine Endocrine: Absent: palpitations <IramKezia moeller Deon 02/11/17 12:41> [facility] Patient Stated Medical History Other HEENT Yes: SAD, 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 Hypertension Yes Other Respiratory Yes: occasional wheezing Diabetes Mellitus Type 2 Yes Constipation No Hx Incontinence No Hx Urinary Tract Infection Yes: not currently Other Yes: bladder sling Other Musculoskeletal Yes: fibromyalgia Shingles Yes Clinic Medical History (Last Reviewed 02/01/17 @ 09:09 by Mitchel Olson MD) Diabetes (Acute Medical) High blood pressure (Acute Medical) Thyroid disease (Acute Medical) <HaleighSergio taylor - 02/14/17 12:56> Patient Stated Medical History Other HEENT Yes: SAD, 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 Total Hysterectomy, 1994. Bladder Tuck, 1994.. Reverse total shoulder procedure on the right, 02/03/17. < Kezia Walden - 02/11/17 12:41> Family History: Family History (Last Reviewed 02/01/17 @ 09:09 by Mitchel Olson MD) Mother High blood pressure Kidney disease Cancer Father High blood pressure Liver disease <Sergio Camejo - 02/14/17 12:56> Family History (Last Reviewed 02/01/17 @ 09:09 by Mitchel Olson MD) Mother High blood pressure Kidney disease Cancer Father High blood pressure Liver disease <Kezia Walden - 02/11/17 12:41> - Social History Smoking status: Never smoker <Kezia Walden - 02/11/17 12:41> Substance use type: does not use <Kezia Walden - 02/11/17 12:41> Alcohol intake frequency: a few times a month (beer) <Kezia Walden - 12:41> Housing: house <Kezia Walden - 02/11/17 12:41> Household members: significant other <Kezia Walden - 02/11/17 12:41> Current occupational status: disabled <Kezia Walden 02/11/17 12:41> Current residence: Apartment/Private Home <Kezia Walden - 02/11/17 12:41> Medications Home Medications Medication Instructions Recorded Confirmed Type Levothyroxine Tab [Synthroid] 0.1 mg PO ACB #0 01/20/11 02/08/17 History metformin 500 mg tablet 500 mg PO BIDWM tab 02/01/17 02/08/17 History nisoldipine ER 17 mg 17 mg PO DAILY 90 Days #90 02/01/17 02/08/17 History tablet,extended release 24 hr ropinirole 0.25 mg tablet 0.25 mg PO HS 90 Days tab 02/01/17 02/08/17 History venlafaxine ER 37.5 mg 37.5 tab PO BID 90 Days #90 02/01/17 02/08/17 History capsule,extended release 24 hr Cholecalciferol (Vitamin D3) 1 tab PO DAILY 02/08/17 02/08/17 History [Vitamin D3] Gabapentin 300 mg PO TID 02/08/17 02/08/17 History Magnesium 30 mg PO DAILY 02/08/17 02/08/17 History Oxycodone HCl/Acetaminophen 1 - 2 tab PO Q4HPRN PRN 02/08/17 02/08/17 History [Percocet 5-325 mg Tablet] Valsartan/Hctz 160/12.5 [Diovan 1 tab PO DAILY 02/08/17 02/08/17 History Hct 160/12.5] <Savanah Camejosein - 02/14/17 12:56> Allergies Allergy/AdvReac Type Severity Reaction Status Date / Time cefaclor Allergy Unknown Verified 02/09/17 06:57 ciprofloxacin Allergy Unknown Verified 02/09/17 06:57 Penicillins Allergy Unknown Verified 02/09/17 06:57 prednisone Allergy Unknown Verified 02/09/17 06:57 lactose AdvReac Unknown Diarrhea Verified 02/09/17 06:57 latex AdvReac Unknown RASH Verified 02/09/17 06:57 <HaleighSergio taylor - 02/14/17 12:56> Exam Vital signs: Temperature 98.5 F 02/14/17 07:30 Pulse Rate 80 02/14/17 07:30 Respiratory Rate 16 02/14/17 07:30 Blood Pressure 139/96 H 02/14/17 07:30 Pulse Oximetry 95 02/14/17 07:30 Oxygen Delivery Method Room Air <Sergio Camejo - 02/14/17 12:56> Temperature 98.6 F 02/11/17 08:43 Pulse Rate 77 02/11/17 08:45 Respiratory Rate 16 02/11/17 08:43 Blood Pressure 158/71 H 02/11/17 08:45 Pulse Oximetry 98 02/11/17 08:43 Oxygen Delivery Method Room Air <Kezia Walden - 02/11/17 12:41> - Constitutional no acute distress, obese, cooperative <Kezia Walden - 02/11/17 12:41> - Routine HEENT Exam Head: Present: normocephalic <Kezia Walden - 02/11/17 12:41> ENT: Present: mucous membranes moist <Kezia Walden - 02/11/17 12:41> - Routine Neck Exam Absent: JVD, carotid bruit <Kezia Walden - 02/11/17 12:41> - Routine Chest/Breast/Axilla Exam Chest wall: Absent: tenderness <Kezia Walden - 02/11/17 12:41> - Routine Respiratory Exam Present: CTA bilaterally. Absent: rales, wheezes <Kezia Walden - 02/11/17 12:41> - Routine Cardiovascular Exam Present: RRR, no murmur <Kezia Walden - 02/11/17 12:41> - Routine Abdominal Exam Present: soft, normoactive bowel sounds <Kezia Walden - 02/11/17 12:41> - Routine Extremities Exam Present: edema (RUE). Absent: full ROM (UEs) <Kezia Walden - 02/11/17 12:41 > - Routine Skin Exam Present: intact, dry, warm <Kezia Walden 02/11/17 12:41> - Routine Neurological Exam Present: alert, oriented X3 <Kezia Walden 02/11/17 12:41> - Routine Psychiatric Exam Present: normal affect, normal thought process <Kezia Walden 02/11/17 12: 41> Results 02/11/17 10:27 02/11/17 10:27 <Sergio Camejo - 02/14/17 12:56> Intake and Output 02/13/17 02/14/17 02/14/17 22:59 06:59 14:59 Intake Total 200 / 200 168 / 168 Balance 200 / 200 168 / 168 Intake: Oral 200 / 200 168 / 168 Other: # Voids 1 1 <Sergio Camejo - 02/14/17 12:56> Cardiac Enzymes 02/11/17 Range/Units 10:27 Troponin I < 0.012 (0-0.12) ng/ml CBC 02/11/17 Range/Units 10:27 WBC 6.6 (4.5-11.0) T/MM3 RBC 3.57 L (4.00-5.20) M/MM3 Hgb 10.2 L (12-16) GM/DL Hct 32.7 L (36-46) % Plt Count 205 D (130-400) T/MM3 Neut # 5.0 (1.8-7.7) T/MM3 Lymph # 1.1 (1-4.8) T/MM3 Wheeler # 0.3 (0-0.8) T/MM3 Eos # 0.2 (0-0.5) T/MM3 Baso # 0.0 (0-0.2) T/MM3 Comprehensive Metabolic Panel 02/11/17 Range/Units 10:27 Sodium 141 (134-144) MEQ/L Potassium 3.9 (3.6-5) MEQ/L Chloride 103 (98-107) MEQ/L Carbon Dioxide 29 (22-30) MEQ/L BUN 17.0 (7-17) MG/DL Creatinine 0.9 D (0.7-1.2) MG/DL Glucose 153 H (65-110) MG/DL Calcium 9.0 (8.4-10.2) MG/DL Intake and Output 02/10/17 02/11/17 02/11/17 22:59 06:59 14:59 Intake Total 200 / 200 180 / 180 Balance 200 / 200 180 / 180 Intake: Oral 200 / 200 180 / 180 Other: # Voids 1 1 # Bowel Movements 1 Laboratory Results - last 48 hr 02/08/17 02/09/17 02/09/17 22:16 14:15 18:06 WBC RBC Hgb Hct MCV MCH MCHC RDW Std Deviation Plt Count MPV Immature Gran % (Auto) Neut % (Auto) Lymph % (Auto) Wheeler % (Auto) Eos % (Auto) Baso % (Auto) Neut # Lymph # Wheeler # Eos # Baso # Abs Immat Gran (auto) Turbidity Sodium Potassium Chloride Carbon Dioxide Anion Gap BUN Creatinine GFR Calculation BUN/Creatinine Ratio Glucose Glucometer 133 162 185 Calculated Osmolality Calcium Magnesium Icterus Index Troponin I TSH Specimen Hemolysis 02/09/17 02/10/17 02/10/17 20:57 05:07 05:07 WBC 5.5 RBC 3.69 L Hgb 10.5 L Hct 33.3 L MCV 90.2 MCH 28.5 MCHC 31.5 RDW Std Deviation 45.2 Plt Count 151 MPV 10.9 Immature Gran % (Auto) 1.5 H Neut % (Auto) 59.8 Lymph % (Auto) 27.3 Wheeler % (Auto) 6.4 Eos % (Auto) 4.4 H Baso % (Auto) 0.6 Neut # 3.3 Lymph # 1.5 Wheeler # 0.4 Eos # 0.2 Baso # 0.0 Abs Immat Gran (auto) 0.08 H Turbidity < 20 Sodium 142 Potassium 4.0 Chloride 107 Carbon Dioxide 27 Anion Gap 8 BUN 17.0 Creatinine 0.7 GFR Calculation 84 BUN/Creatinine Ratio 24 Glucose 108 Glucometer 110 Calculated Osmolality 276 Calcium 8.7 Magnesium 1.9 Icterus Index < 2 Troponin I TSH Specimen Hemolysis 21 02/10/17 02/10/17 02/10/17 05:07 10:45 12:59 WBC RBC Hgb Hct MCV MCH MCHC RDW Std Deviation Plt Count MPV Immature Gran % (Auto) Neut % (Auto) Lymph % (Auto) Wheeler % (Auto) Eos % (Auto) Baso % (Auto) Neut # Lymph # Wheeler # Eos # Baso # Abs Immat Gran (auto) Turbidity Sodium Potassium Chloride Carbon Dioxide Anion Gap BUN Creatinine GFR Calculation BUN/Creatinine Ratio Glucose Glucometer 149 158 Calculated Osmolality Calcium Magnesium Icterus Index Troponin I TSH 2.49 Specimen Hemolysis 02/10/17 02/10/17 02/11/17 14:25 20:11 05:54 WBC RBC Hgb Hct MCV MCH MCHC RDW Std Deviation Plt Count MPV Immature Gran % (Auto) Neut % (Auto) Lymph % (Auto) Wheeler % (Auto) Eos % (Auto) Baso % (Auto) Neut # Lymph # Wheeler # Eos # Baso # Abs Immat Gran (auto) Turbidity Sodium Potassium Chloride Carbon Dioxide Anion Gap BUN Creatinine GFR Calculation BUN/Creatinine Ratio Glucose Glucometer 134 139 128 Calculated Osmolality Calcium Magnesium Icterus Index Troponin I TSH Specimen Hemolysis 02/11/17 02/11/17 10:27 10:27 WBC 6.6 RBC 3.57 L Hgb 10.2 L Hct 32.7 L MCV 91.6 MCH 28.6 MCHC 31.2 RDW Std Deviation 46.0 Plt Count 205 D MPV 10.3 Immature Gran % (Auto) 0.6 H Neut % (Auto) 75.5 H Lymph % (Auto) 16.6 L Wheeler % (Auto) 4.4 Eos % (Auto) 2.4 Baso % (Auto) 0.5 Neut # 5.0 Lymph # 1.1 Wheeler # 0.3 Eos # 0.2 Baso # 0.0 Abs Immat Gran (auto) 0.04 H Turbidity < 20 Sodium 141 Potassium 3.9 Chloride 103 Carbon Dioxide 29 Anion Gap 9 BUN 17.0 Creatinine 0.9 D GFR Calculation 63 BUN/Creatinine Ratio 19 Glucose 153 H Glucometer Calculated Osmolality 276 Calcium 9.0 Magnesium Icterus Index < 2 Troponin I < 0.012 TSH Specimen Hemolysis < 15 <Kezia Walden - 02/11/17 12:41> - Imaging and Cardiology Echo: pending <Kezia Walden - 02/11/17 12:41> EKG results: image reviewed <Kezia Walden - 02/11/17 12:41> - EKG Interpretation EKG: sinus rhythm <Kezia Walden 02/11/17 12:41> EKG interpretations - Dysrhythmias Sinus rhythms and dysrhythmias: sinus rhythm <Kezia Walden 02/11/17 12:41> - Blocks, axis, hypertrophy, ST abn AV and intraventricular conduction: right bundle branch block (fixed/ intermittent, complete/incomplete) (incomplete) <Kezia Walden 02/11/17 12: 41> Assessment and Plan (1) Status post reverse total arthroplasty of right shoulder Current visit: Yes Status: Acute (2) Morbid obesity with BMI of 45.0-49.9, adult Current visit: No Status: Chronic (3) Diabetes mellitus type 2 in obese Current visit: No Status: Chronic (4) Benign essential hypertension Current visit: No Status: Chronic (5) Hyperlipidemia Current visit: No Status: Chronic (6) Near syncope Problem details: ECHO 1. Normal LV systolic function with ejection fraction of 55%. 2. Trace of mitral regurgitation. 3. Aortic sclerosis with trace of aortic insufficiency. 4. Trace of tricuspid regurgitation with estimated pulmonary artery systolic pressure of 35. Current visit: Yes Status: Acute <Sergio Camejo - 02/14/17 12:56> (1) Status post reverse total arthroplasty of right shoulder Current visit: Yes Status: Acute per IRU physician (2) Diabetes mellitus type 2 in obese Current visit: No Status: Chronic per hospitalist (3) Benign essential hypertension Current visit: No Status: Chronic suboptimal control. Start Amlodipine 5mg daily (4) Hyperlipidemia Current visit: No Status: Chronic (5) Morbid obesity with BMI of 45.0-49.9, adult Current visit: No Status: Chronic (6) Near syncope Current visit: Yes Status: Acute Patient reports feeling as if she was having a hotflash. Her vision blurred, she felt dizzy, and like she was going to "pass out." V/S stable, BS stable, resolved quickly without intervention. EKG benign, Troponin negative, echo pending. Continue to monitor telemetry. <Kezia Walden - 02/11/17 14:09> - Attestation Attestation Narrative: 02/14/17 12:55 Recommendation After examining the patient I agree with the above assessment. I am involved in the formulation of the patient's plan of care. <Kelly Camejoin - 02/14/17 12:56> Hospital Course Summary Disclaimer: The visit summary below is not to be considered part of the above Progress Note. <Sergio Camejo - 02/14/17 12:56> The visit summary below is not to be considered part of the above Progress Note. <Kezia Walden Deon - 02/11/17 12:41> Hospital Course: 02/09/17 13:53 IMPRESSION/PLAN: S/P reverse total arthroplasty of right shoulder. * Underwent surgery on right shoulder only by Dr. Hensley at [place] on 02/03. Recommends follow up in clinic on or around 02/17. Patient family to call for appointment. * Agree with admission to IRU for intensive rehabilitation and close medical monitoring to improve strength and functional ability. Provide safe and supportive environment. Encourage participation in therapies. Pain control per Dr. Jordan. Bowel motivation to prevent constipation in light of narcotic pain medications. Lovenox for DVT prophylaxis. Anemia, post-op, acute. * Present prior to admission per records from [place]. Hemoglobin on admission was 10.6. Patient remains asymptomatic. Continue to monitor trends and will recheck on 02/10 to monitor blood counts. Bilateral shoulder fractures secondary to mechanical fall, acute. * Bilateral shoulder fractures. No surgery to left shoulder. Keep right shoulder immobilized per records. Monitor surgical incision site for signs of infection in light of patient's morbid obesity and diabetes. Morbid obesity with BMI >45, chronic. * Carb controlled diet at 1800 cals. Consult dietary for additional recommendations. Obesity increases patient's risk for complications and infection. Monitor closely. Diabetes, Type II, chronic. * Continue home metformin. Monitor blood sugars closely and sliding scale insulin as indicated. Carb controlled diet at 1800kcal. Will recheck BMP on to monitor electrolytes and renal function. Hypertension, chronic. * Blood pressure stable. Monitor closely. Continue home medications including nisoldipine and Valsartan/HCTZ. Monitor daily weights for signs of fluid overload. GERD, chronic. * Continue home PPI for GI protection and GERD. Acquired hypothyroidism, chronic. * Continue home synthroid. Restless leg syndrome, chronic. * Continue home Requip. Pain control per Dr. Jordan. Fibromyalgia and chronic low back pain, chronic. * Pain control per Dr. Jordan. Depression, chronic. * Continue home Effexor. Upon discharge, patient's care is to be returned to her PCP, Dr. Cho. 02/10/17 Day #2 IRU Bilateral shoulder fractures secondary to fall * No surgery to left shoulder. Keep right shoulder immobilized per records. Diabetes, Type II, chronic. * Continue home metformin. Continue accucheks per Dr. Jordan and sliding scale insulin as indicated. Carb controlled diet at 1800kcal. Hypertension, chronic. * Monitor closely. Continue home medications including nisoldipine and Valsartan/HCTZ. GERD, chronic. * She declines PPI. Has TUMS ordered PRN. Consider starting PPI should she have increasing or continued symptoms. 02/11/17 Day #3 IRU Regarding episode of flushing, sweating, and lightheadedness, patient was placed on telemetry. CBC, BMP, troponin and TSH are pending. EKG and echocardiogram have been ordered by Dr. Richard and consult to Dr. Woodward has been placed. Phone call was made to Kezia Walden APRN to give her background on the patient. Patient informed and is agreeable. Other chronic problems are stable. <Kezia Walden - 02/11/17 12:41> Sepsis Assessment - Evaluation Sepsis screening result: No Definite Risk <Kezia Walden - 02/11/17 12:41>
[2017-02-11] MEDS: AMLODIPINE 5 MG TABLET PO SCH (15:15)
--- NOTE | 2017-02-11 15:20 | XRay Report ---
Indication: near snycope Procedure: XR chest 1V: Encounter: Initial Comparison: Acute abdominal series 01/20/2011 Technique: A single portable AP view of the chest was obtained. Findings: Lungs and airways: Normal lung volumes. No focal airspace consolidation. Normal pulmonary vasculature. Pleura: No pleural effusion or pneumothorax. Heart and mediastinum: The cardiomediastinal silhouette and great vessels are within normal limits. Osseous structures and soft tissues: Postoperative changes of recent shoulder arthroplasty with overlying surgical skin nalini. Degenerative disc disease of the thoracic spine. Impression: No acute cardiopulmonary process. .
--- NOTE | 2017-02-11 15:51 | Echocardiogram ---
DATE OF PROCEDURE February 11, 2017 This is a two-dimensional echo with spectral Doppler, color-flow and M-mode. It was obtained in a patient with near syncope. Left atrial dimension is normal. Left ventricular end-diastolic dimension is normal. Left ventricular wall thickness is normal. LV systolic function is normal with an ejection fraction of 55%. Right atrium is normal. Right ventricle is normal. Aortic root dimension is normal. Mitral valve is morphologically normal with trace of mitral regurgitation. Aortic valve shows mild fibrocalcific changes with no stenosis. Trace of aortic insufficiency is present. Tricuspid valve shows trace of tricuspid regurgitation with estimated pulmonary artery systolic pressure of 35. Pulmonary valve shows no pulmonary insufficiency. There is no pericardial effusion. IMPRESSION 1. Normal LV systolic function with ejection fraction of 55%. 2. Trace of mitral regurgitation. 3. Aortic sclerosis with trace of aortic insufficiency. 4. Trace of tricuspid regurgitation with estimated pulmonary artery systolic pressure of 35. MTDD
[2017-02-11] MEDS: ROPINIROLE 0.25 MG TABLET PO SCH (21:39)
[2017-02-12] MEDS: Oxycodone/Acetaminophen 5/325 1 TAB PO PRN ×4 (02:04→20:56)
[2017-02-12] MEDS: Oxycodone *IR* 5 MG TABLET PO SCH ×2 (06:18→12:50)
[2017-02-12] MEDS: LEVOTHYROXINE 100 MCG TABLET PO SCH (06:18)
[2017-02-12] MEDS: VENLAFAXINE 37.5 MG TABLET PO SCH ×2 (09:10→18:08)
[2017-02-12] MEDS: METFORMIN 500 MG TABLET PO SCH ×2 (09:10→18:08)
[2017-02-12] MEDS: MAGNESIUM OXIDE 400 MG TABLET PO SCH (09:10)
[2017-02-12] MEDS: NISOLDIPINE ER 20 MG TABLET PO SCH (09:10)
[2017-02-12] MEDS: GABAPENTIN 300 MG CAPSULE PO SCH ×3 (09:11→20:56)
[2017-02-12] MEDS: AMLODIPINE 5 MG TABLET PO SCH (09:11)
[2017-02-12] MEDS: ENOXAPARIN 40 MG/0.4 ML INJECTION SQ SCH (09:12)
[2017-02-12] MEDS: ROPINIROLE 0.25 MG TABLET PO SCH (20:56)
[2017-02-13] MEDS: LEVOTHYROXINE 100 MCG TABLET PO SCH (06:33)
[2017-02-13] MEDS: Oxycodone *IR* 5 MG TABLET PO SCH ×2 (06:33→12:42)
[2017-02-13] MEDS: Oxycodone/Acetaminophen 5/325 1 TAB PO PRN ×3 (09:48→21:59)
[2017-02-13] MEDS: AMLODIPINE 5 MG TABLET PO SCH (09:48)
[2017-02-13] MEDS: METFORMIN 500 MG TABLET PO SCH ×2 (09:48→17:58)
[2017-02-13] MEDS: VENLAFAXINE 37.5 MG TABLET PO SCH ×2 (09:49→17:58)
[2017-02-13] MEDS: ENOXAPARIN 40 MG/0.4 ML INJECTION SQ SCH (09:49)
[2017-02-13] MEDS: GABAPENTIN 300 MG CAPSULE PO SCH ×3 (09:49→21:59)
[2017-02-13] MEDS: NISOLDIPINE ER 20 MG TABLET PO SCH (09:49)
[2017-02-13] MEDS: MAGNESIUM OXIDE 400 MG TABLET PO SCH (09:49)
--- NOTE | 2017-02-13 13:17 | Progress Note ---
Subjective: Irina feels like she is doing better. She denies any chest pain or shortness of breath, weakness or dizziness. She is mostly confused about bruising to her right arm, which she thinks is worsening. She denies any abdominal pain or GI complaints. She denies constipation. Objective Vital signs: Temperature 98.1 F 02/13/17 07:51 Pulse Rate 72 02/13/17 08:04 Respiratory Rate 16 02/13/17 07:51 Blood Pressure 157/75 H 02/13/17 07:51 Pulse Oximetry 96 02/13/17 07:51 Oxygen Delivery Method Room Air Rhythm: Normal Sinus Rhythm Weight: 121.9 kg - Constitutional Present: no acute distress, well nourished, well developed, obese - Routine HEENT Exam ENT: Present: mucous membranes moist, oropharynx clear - Routine Respiratory Exam Present: CTA bilaterally - Routine Cardiovascular Exam Present: RRR, S1, S2 - Routine Abdominal Exam Present: soft, normoactive bowel sounds, non distended, non tender - Routine Extremities Exam Present: edema (trace bilateral lower extremity edema), pulses intact Comments: Sling to right arm, bandage to right upper arm is clean, dry and intact. There is ecchymosis, as expected. - Routine Skin Exam Present: dry, warm - Routine Neurological Exam Present: alert, oriented X3 - Routine Psychiatric Exam Present: normal affect, normal thought process, cooperative Results - Labs CBC & Chem 7: 02/11/17 10:27 02/11/17 10:27 Assessment and Plan (1) Status post reverse total arthroplasty of right shoulder Current visit: Yes Status: Acute (2) Morbid obesity with BMI of 45.0-49.9, adult Current visit: No Status: Chronic (3) Diabetes mellitus type 2 in obese Current visit: No Status: Chronic (4) Benign essential hypertension Current visit: No Status: Chronic (5) GERD (gastroesophageal reflux disease) Current visit: Yes Status: Chronic (6) Hypothyroidism (acquired) Current visit: Yes Status: Chronic (7) Hyperlipidemia Current visit: No Status: Chronic (8) Restless leg syndrome Current visit: No Status: Chronic (9) Near syncope Problem details: ECHO 1. Normal LV systolic function with ejection fraction of 55%. 2. Trace of mitral regurgitation. 3. Aortic sclerosis with trace of aortic insufficiency. 4. Trace of tricuspid regurgitation with estimated pulmonary artery systolic pressure of 35. Current visit: Yes Status: Acute DVT Prophylaxis: Lovenox Resuscitation Status: Full Code Assessment and Plan: A/P S/P reverse total arthroplasty of right shoulder. Bilateral shoulder fractures secondary to mechanical fall, acute. Anemia, post-op, acute. Stable. Near syncope. NSR on tele. Echo/EKG without acute findings. Cont tele. Diabetes, Type II, chronic. BGM under good control. Hypertension, chronic. Elevated BP - amlodipine added to med list (now on 2 CCB ) - d/w Kezia Walden APRN - she will review. Repeat CBC and BMP in am. Sepsis Assessment - Evaluation Sepsis screening result: No Definite Risk Hospital Course Summary Disclaimer: The visit summary below is not to be considered part of the above Progress Note. Hospital Course: 02/09/17 13:53 IMPRESSION/PLAN: S/P reverse total arthroplasty of right shoulder. * Underwent surgery on right shoulder only by Dr. Hensley at [place] on 02/03. Recommends follow up in clinic on or around 02/17. Patient family to call for appointment. * Agree with admission to IRU for intensive rehabilitation and close medical monitoring to improve strength and functional ability. Provide safe and supportive environment. Encourage participation in therapies. Pain control per Dr. Jordan. Bowel motivation to prevent constipation in light of narcotic pain medications. Lovenox for DVT prophylaxis. Anemia, post-op, acute. * Present prior to admission per records from [place]. Hemoglobin on admission was 10.6. Patient remains asymptomatic. Continue to monitor trends and will recheck on 02/10 to monitor blood counts. Bilateral shoulder fractures secondary to mechanical fall, acute. * Bilateral shoulder fractures. No surgery to left shoulder. Keep right shoulder immobilized per records. Monitor surgical incision site for signs of infection in light of patient's morbid obesity and diabetes. Morbid obesity with BMI >45, chronic. * Carb controlled diet at 1800 cals. Consult dietary for additional recommendations. Obesity increases patient's risk for complications and infection. Monitor closely. Diabetes, Type II, chronic. * Continue home metformin. Monitor blood sugars closely and sliding scale insulin as indicated. Carb controlled diet at 1800kcal. Will recheck BMP on to monitor electrolytes and renal function. Hypertension, chronic. * Blood pressure stable. Monitor closely. Continue home medications including nisoldipine and Valsartan/HCTZ. Monitor daily weights for signs of fluid overload. GERD, chronic. * Continue home PPI for GI protection and GERD. Acquired hypothyroidism, chronic. * Continue home synthroid. Restless leg syndrome, chronic. * Continue home Requip. Pain control per Dr. Jordan. Fibromyalgia and chronic low back pain, chronic. * Pain control per Dr. Jordan. Depression, chronic. * Continue home Effexor. Upon discharge, patient's care is to be returned to her PCP, Dr. Cho. 02/10/17 Day #2 IRU Bilateral shoulder fractures secondary to fall * No surgery to left shoulder. Keep right shoulder immobilized per records. Diabetes, Type II, chronic. * Continue home metformin. Continue accucheks per Dr. Jordan and sliding scale insulin as indicated. Carb controlled diet at 1800kcal. Hypertension, chronic. * Monitor closely. Continue home medications including nisoldipine and Valsartan/HCTZ. GERD, chronic. * She declines PPI. Has TUMS ordered PRN. Consider starting PPI should she have increasing or continued symptoms. 02/11/17 Day #3 IRU Regarding episode of flushing, sweating, and lightheadedness, patient was placed on telemetry. CBC, BMP, troponin and TSH are pending. EKG and echocardiogram have been ordered by Dr. Richard and consult to Dr. Woodward has been placed. Phone call was made to Kezia Walden APRN to give her background on the patient. Patient informed and is agreeable. Other chronic problems are stable. 02/13/17 S/P reverse total arthroplasty of right shoulder. Bilateral shoulder fractures secondary to mechanical fall, acute. Anemia, post-op, acute. Stable. Near syncope. NSR on tele. Echo/EKG without acute findings. Cont tele. Diabetes, Type II, chronic. BGM under good control. Hypertension, chronic. Elevated BP - amlodipine added to med list (now on 2 CCB ) - d/w Kezia Walden APRN - she will review.
[2017-02-13] MEDS: ROPINIROLE 0.25 MG TABLET PO SCH (22:02)
[2017-02-14] MEDS: Oxycodone *IR* 5 MG TABLET PO SCH ×2 (06:15→12:35)
[2017-02-14] MEDS: LEVOTHYROXINE 100 MCG TABLET PO SCH (06:16)
[2017-02-14] MEDS: VENLAFAXINE 37.5 MG TABLET PO SCH ×2 (08:35→18:14)
[2017-02-14] MEDS: METFORMIN 500 MG TABLET PO SCH ×2 (08:35→18:13)
[2017-02-14] MEDS: ENOXAPARIN 40 MG/0.4 ML INJECTION SQ SCH (08:37)
[2017-02-14] MEDS: MAGNESIUM OXIDE 400 MG TABLET PO SCH (08:38)
[2017-02-14] MEDS: AMLODIPINE 5 MG TABLET PO SCH (08:39)
[2017-02-14] MEDS: GABAPENTIN 300 MG CAPSULE PO SCH ×3 (08:39→21:16)
[2017-02-14] MEDS: NISOLDIPINE ER 20 MG TABLET PO SCH (08:40)
[2017-02-14] MEDS: Oxycodone/Acetaminophen 5/325 1 TAB PO PRN (08:45)
--- NOTE | 2017-02-14 11:21 | IRU Progress Note ---
- Subjective/Serverity of Illness Irina was evaluated in her room today. She believes that she is getting better. She is able to dress herself much more efficiently. Continues to have a lot of discomfort in both the left and right shoulder. Right shoulder was operated upon in the left was not. She is able to dress herself with regard to her lower extremity dressing fairly independently she states. Requires some assistance for upper extremity dressing. She is improving with regard to therapies according to their notes. Medically, she has several issues. Had an episode of hot flash and near-syncope over the weekend. Was seen by cardiology. Troponin was negative. Echo looks unremarkable. She is on telemetry at present. Has had no further episodes. Other medical issues as follows: 1. Diabetes type 2 currently requiring insulin at least on a short-term basis. She was not on insulin at home. We continue to monitor her blood sugars. 2. Morbid obesity with BMI 49 3. Fibromyalgia: Does have diffuse muscle pains. Continue current treatment. 4. Hypertension 5. Recent shoulder surgery and wound which is at increased risk of infection due to her diabetes and obesity Exam Vital Signs: Temperature 98.5 F 02/14/17 07:30 Pulse Rate 80 02/14/17 07:30 Respiratory Rate 16 02/14/17 07:30 Blood Pressure 139/96 H 02/14/17 07:30 Pulse Oximetry 95 02/14/17 07:30 Oxygen Delivery Method Room Air Height: 1.57 m Weight: 121.9 kg Body Mass Index: 50.0 - Constitutional Present: no acute distress Comments: The patient is awake, alert and oriented and in no acute distress. Pupils are equal. The neck is supple. Chest: Clear to auscultation bilaterally. Cor: RR with no myra, click nor murmur Abd: soft with normo-active bowel sounds. There are no masses, no tenderness and no guarding. Extremities: No edema is noted. There are good pulses in both ankles. No cyanosis is present. The patient's wound in the right upper extremity is clean and dry and without inflammation. Again we did not remove the dressing but the surrounding area does not appear to be inflamed. Results IRU - Labs Labs: Have reviewed recent labs, echo etc. Also reviewed notes from cardiology and hospitalist. Sepsis Assessment - Evaluation Sepsis screening result: No Definite Risk IRU A/P (1) Status post reverse total arthroplasty of right shoulder Current visit: Yes Status: Acute Continues to work on efficiency with regard to dressing etc. Pain is limiting factor. (2) Morbid obesity with BMI of 45.0-49.9, adult Current visit: No Status: Chronic (3) Diabetes mellitus type 2 in obese Current visit: No Status: Chronic Blood sugars are reviewed and appear to be stable. They are running around 120 or so. (4) Benign essential hypertension Current visit: No Status: Chronic (5) GERD (gastroesophageal reflux disease) Qualifiers: Esophagitis presence: without esophagitis Qualified Code(s): K21.9 - Gastro -esophageal reflux disease without esophagitis Current visit: Yes Status: Chronic (6) Hypothyroidism (acquired) Current visit: Yes Status: Chronic (7) Hyperlipidemia Qualifiers: Hyperlipidemia type: other hyperlipidemia Qualified Code(s): E78.4 - Other hyperlipidemia Current visit: No Status: Chronic (8) Restless leg syndrome Current visit: No Status: Chronic DVT Prophylaxis: Lovenox Resuscitation Status: Full Code - Course Hospital Course: Eddie Jordan MD: 02/09/17 10:39 Just getting started with therapies. Pain is reasonably well controlled. Blood sugars stable at 122. Blood pressure elevated and we will monitor. 02/10/17 11:48 Patient is tearful and fearful regarding dressing because of pain in the right shoulder. Pain management will be modified in this regard and give her Percocet prior to each therapy session. We will monitor her blood pressures which are running too high at present. Initiate blood glucose monitoring 3 times daily. 02/14/17 11:21 Continues to work on upper and lower extremity dressing as well as transfers. She is improving with regard to therapies. - Interventions to Obtain Goals PT Treatment Plan: Balance/Proprioception, Functional Activities, Gait Training , Patient/Family Education, Therapeutic Exercise OT Treatment Plan: ADL (Basic Care), Balance Training, IADL, Pt./Family Education, Ther. Exercise for ADL
[2017-02-14] MEDS: ROPINIROLE 0.25 MG TABLET PO SCH (21:17)
[2017-02-15] MEDS: Oxycodone/Acetaminophen 5/325 1 TAB PO PRN ×4 (04:32→20:47)
[2017-02-15] MEDS: LEVOTHYROXINE 100 MCG TABLET PO SCH (06:10)
[2017-02-15] MEDS: Oxycodone *IR* 5 MG TABLET PO SCH ×2 (06:12→12:15)
[2017-02-15] MEDS: AMLODIPINE 5 MG TABLET PO SCH (09:13)
[2017-02-15] MEDS: NISOLDIPINE ER 20 MG TABLET PO SCH (09:13)
[2017-02-15] MEDS: METFORMIN 500 MG TABLET PO SCH ×2 (09:14→17:47)
[2017-02-15] MEDS: GABAPENTIN 300 MG CAPSULE PO SCH ×3 (09:14→20:46)
[2017-02-15] MEDS: MAGNESIUM OXIDE 400 MG TABLET PO SCH (09:14)
[2017-02-15] MEDS: VENLAFAXINE 37.5 MG TABLET PO SCH ×2 (09:14→17:47)
[2017-02-15] MEDS: ENOXAPARIN 40 MG/0.4 ML INJECTION SQ SCH (09:17)
--- NOTE | 2017-02-15 11:34 | IRU Progress Note ---
- Subjective/Serverity of Illness Irina had a difficult night and did not sleep well. Part of this was due to her shoulder pain. In addition she was awakened early at around 5 AM for a blood draw which she did not appreciate. Overall she is improving with therapy. However still requires maximal assistance for upper extremity dressing. Shoulder pain and limitation of range of motion of the right shoulder are limitations to her progress. She does have history of diabetes mellitus. Her blood sugars are fairly well- controlled. The patient wondered when the nalini can come out from her right shoulder surgery. I told her I would check into this. Other medical issues as follows: 1. Diabetes type 2 currently requiring insulin at least on a short-term basis. She was not on insulin at home. We continue to monitor her blood sugars. They seem to be stable at present. 2. Morbid obesity with BMI 49. Limitation of total caloric intake will be important. 3. Fibromyalgia: Does have diffuse muscle pains. Continue current treatment. 4. Hypertension 5. Recent shoulder surgery and wound which is at increased risk of infection due to her diabetes and obesity Exam Vital Signs: Temperature 98.3 F 02/15/17 08:30 Pulse Rate 80 02/15/17 08:30 Respiratory Rate 18 02/15/17 08:30 Blood Pressure 139/98 H 02/15/17 08:30 Pulse Oximetry 98 02/15/17 08:30 Oxygen Delivery Method Room Air Height: 1.57 m Weight: 124.5 kg Body Mass Index: 50.0 - Constitutional Present: mild distress Comments: The patient is awake, alert and oriented and in no acute distress. Pupils are equal. The neck is supple. Chest: Clear to auscultation bilaterally. Cor: RR with no myra, click nor murmur Abd: soft with normo-active bowel sounds. There are no masses, no tenderness and no guarding. Extremities: No edema is noted. In the surrounding area around the right shoulder wound, there is no edema nor inflammation. I will check with the referring physician with regard to timing of removal of the nalini. Results IRU - Labs Labs: I reviewed her blood sugars which are stable at present. Sepsis Assessment - Evaluation Sepsis screening result: No Definite Risk IRU A/P (1) Status post reverse total arthroplasty of right shoulder Current visit: Yes Status: Acute Continues to have quite a bit of discomfort in the shoulder. Limitation of range of motion is an impediment to her progress. However she is improving slowly with therapies. (2) Morbid obesity with BMI of 45.0-49.9, adult Current visit: No Status: Chronic (3) Diabetes mellitus type 2 in obese Current visit: No Status: Chronic Blood sugars appear to be fairly well controlled at present. She is on sliding scale insulin. (4) Benign essential hypertension Current visit: No Status: Chronic Her blood pressures are reviewed and are stable at the present time. (5) GERD (gastroesophageal reflux disease) Qualifiers: Esophagitis presence: without esophagitis Qualified Code(s): K21.9 - Gastro -esophageal reflux disease without esophagitis Current visit: Yes Status: Chronic (6) Hypothyroidism (acquired) Current visit: Yes Status: Chronic (7) Hyperlipidemia Qualifiers: Hyperlipidemia type: other hyperlipidemia Qualified Code(s): E78.4 - Other hyperlipidemia Current visit: No Status: Chronic (8) Restless leg syndrome Current visit: No Status: Chronic DVT Prophylaxis: Lovenox Resuscitation Status: Full Code - Course Hospital Course: Eddie Jordan MD: 02/09/17 10:39 Just getting started with therapies. Pain is reasonably well controlled. Blood sugars stable at 122. Blood pressure elevated and we will monitor. 02/10/17 11:48 Patient is tearful and fearful regarding dressing because of pain in the right shoulder. Pain management will be modified in this regard and give her Percocet prior to each therapy session. We will monitor her blood pressures which are running too high at present. Initiate blood glucose monitoring 3 times daily. 02/14/17 11:21 Continues to work on upper and lower extremity dressing as well as transfers. She is improving with regard to therapies. 02/15/17 11:34 She is improving with therapy. Blood sugars are reviewed and are stable. Had a difficult night with regard to discomfort in the shoulders. She is on pain medication. She wondered when nalini can be removed and we will check into this. - Interventions to Obtain Goals PT Treatment Plan: Balance/Proprioception, Functional Activities, Gait Training , Patient/Family Education, Therapeutic Exercise OT Treatment Plan: ADL (Basic Care), Balance Training, IADL, Pt./Family Education, Ther. Exercise for ADL
--- NOTE | 2017-02-15 13:00 | Progress Note ---
<Gali Washburn - Last Filed: 02/15/17 12:57> Subjective: Patient seen today during therapy. Overall medically she has been stable for the most part. Sugars have been stable. Her blood pressures have been high. She was recently seen by cardiology and was started on amlodipine. Patient was already taking nisoldipine and valsartan/HCTZ. In discussion with cardiology, they weren't aware that she was already on the nisoldipine. Regardless, blood pressures are not controlled on this regimen. Patient has no complaints other than her shoulder pain. Objective Vital signs: Temperature 98.3 F 02/15/17 08:30 Pulse Rate 80 02/15/17 08:30 Respiratory Rate 18 02/15/17 08:30 Blood Pressure 139/98 H 02/15/17 08:30 Pulse Oximetry 98 02/15/17 08:30 Oxygen Delivery Method Room Air Body Mass Index: 50.0 - Constitutional Present: well nourished, well developed - Routine HEENT Exam Head: Present: normocephalic, atraumatic Eye: Present: EOMI ENT: Present: mucous membranes moist - Routine Respiratory Exam Present: CTA bilaterally. Absent: wheezes - Routine Cardiovascular Exam Present: RRR, S1, S2, tachycardia (examined while exercising). Absent: murmur - Routine Extremities Exam Present: no edema, normal capillary refill Comments: Right arm in shoulder immobilizer - Routine Skin Exam Present: dry, warm - Routine Neurological Exam Present: alert, oriented X3 - Routine Lymphatic Exam Lymphatic: Absent: adenopathy - Routine Psychiatric Exam Present: normal affect Results - Labs CBC & Chem 7: 02/11/17 10:27 02/11/17 10:27 Assessment and Plan (1) Status post reverse total arthroplasty of right shoulder Current visit: Yes Status: Acute (2) Morbid obesity with BMI of 45.0-49.9, adult Current visit: No Status: Chronic (3) Diabetes mellitus type 2 in obese Current visit: No Status: Chronic (4) Benign essential hypertension Current visit: No Status: Chronic (5) GERD (gastroesophageal reflux disease) Current visit: Yes Status: Chronic (6) Hypothyroidism (acquired) Current visit: Yes Status: Chronic (7) Hyperlipidemia Current visit: No Status: Chronic (8) Restless leg syndrome Current visit: No Status: Chronic (9) Near syncope Problem details: ECHO 1. Normal LV systolic function with ejection fraction of 55%. 2. Trace of mitral regurgitation. 3. Aortic sclerosis with trace of aortic insufficiency. 4. Trace of tricuspid regurgitation with estimated pulmonary artery systolic pressure of 35. Current visit: Yes Status: Acute Assessment and Plan: Assessment S/P reverse total arthroplasty of right shoulder. Anemia, postop, acute Bilateral shoulder fracture secondary to mechanical fall, acute Morbid obesity with BMI greater than 45, chronic Diabetes, type II, chronic Hypertension, chronic GERD, chronic Acquired hypothyroidism, chronic Restless leg syndrome, chronic Fibromyalgia and chronic low back pain, chronic Depression, chronic Plan Will DC the nisoldipine and increase amlodipine to 10 mg. Will also increase her valsartan/HCTZ from 160/12.5 to 160/25. If this doesn't control her pressures, would consider adding in another agent. DC telemetry. Reviewed telemetry, she has essentially been in normal sinus rhythm or sinus tach with rates ranging from 60s to 150s at the highest. Cardiology has seen her for her near-syncope complaints and doesn't recommend further workup beyond what has been done during her stay. Would recommend repeat BMP on an outpatient basis in a month. Sepsis Assessment - Evaluation Sepsis screening result: No Definite Risk Hospital Course Summary Disclaimer: The visit summary below is not to be considered part of the above Progress Note. Hospital Course: 02/09/17 13:53 IMPRESSION/PLAN: S/P reverse total arthroplasty of right shoulder. * Underwent surgery on right shoulder only by Dr. Hensley at [facility] on 02/03. Recommends follow up in clinic on or around 02/17. Patient family to call for appointment. * Agree with admission to IRU for intensive rehabilitation and close medical monitoring to improve strength and functional ability. Provide safe and supportive environment. Encourage participation in therapies. Pain control per Dr. Jordan. Bowel motivation to prevent constipation in light of narcotic pain medications. Lovenox for DVT prophylaxis. Anemia, post-op, acute. * Present prior to admission per records from [facility]. Hemoglobin on admission was 10.6. Patient remains asymptomatic. Continue to monitor trends and will recheck on 02/10 to monitor blood counts. Bilateral shoulder fractures secondary to mechanical fall, acute. * Bilateral shoulder fractures. No surgery to left shoulder. Keep right shoulder immobilized per records. Monitor surgical incision site for signs of infection in light of patient's morbid obesity and diabetes. Morbid obesity with BMI >45, chronic. * Carb controlled diet at 1800 cals. Consult dietary for additional recommendations. Obesity increases patient's risk for complications and infection. Monitor closely. Diabetes, Type II, chronic. * Continue home metformin. Monitor blood sugars closely and sliding scale insulin as indicated. Carb controlled diet at 1800kcal. Will recheck BMP on to monitor electrolytes and renal function. Hypertension, chronic. * Blood pressure stable. Monitor closely. Continue home medications including nisoldipine and Valsartan/HCTZ. Monitor daily weights for signs of fluid overload. GERD, chronic. * Continue home PPI for GI protection and GERD. Acquired hypothyroidism, chronic. * Continue home synthroid. Restless leg syndrome, chronic. * Continue home Requip. Pain control per Dr. Jordan. Fibromyalgia and chronic low back pain, chronic. * Pain control per Dr. Jordan. Depression, chronic. * Continue home Effexor. Upon discharge, patient's care is to be returned to her PCP, Dr. Cho. 02/10/17 Day #2 IRU Bilateral shoulder fractures secondary to fall * No surgery to left shoulder. Keep right shoulder immobilized per records. Diabetes, Type II, chronic. * Continue home metformin. Continue accucheks per Dr. Jordan and sliding scale insulin as indicated. Carb controlled diet at 1800kcal. Hypertension, chronic. * Monitor closely. Continue home medications including nisoldipine and Valsartan/HCTZ. GERD, chronic. * She declines PPI. Has TUMS ordered PRN. Consider starting PPI should she have increasing or continued symptoms. 02/11/17 Day #3 IRU Regarding episode of flushing, sweating, and lightheadedness, patient was placed on telemetry. CBC, BMP, troponin and TSH are pending. EKG and echocardiogram have been ordered by Dr. Richard and consult to Dr. Woodward has been placed. Phone call was made to Kezia Walden APRN to give her background on the patient. Patient informed and is agreeable. Other chronic problems are stable. 02/13/17 day #5 IRU S/P reverse total arthroplasty of right shoulder. Bilateral shoulder fractures secondary to mechanical fall, acute. Anemia, post-op, acute. Stable. Near syncope. NSR on tele. Echo/EKG without acute findings. Cont tele. Diabetes, Type II, chronic. BGM under good control. Hypertension, chronic. Elevated BP - amlodipine added to med list (now on 2 CCB ) - d/w Kezia Walden APRN - she will review. 02/15/17 day #7 IRU Will DC the nisoldipine and increase amlodipine to 10 mg. Will also increase her valsartan/HCTZ from 160/12.5 to 160/25. If this doesn't control her pressures, would consider adding in another agent. DC telemetry. Reviewed telemetry, she has essentially been in normal sinus rhythm or sinus tach with rates ranging from 60s to 150s at the highest. Cardiology has seen her for her near-syncope complaints and doesn't recommend further workup beyond what has been done during her stay. Would recommend repeat BMP on an outpatient basis in a month. <Cody Falk - Last Filed: 02/15/17 15:06> Objective Vital signs: Temperature 98.3 F 02/15/17 08:30 Pulse Rate 80 02/15/17 08:30 Respiratory Rate 18 02/15/17 08:30 Blood Pressure 139/98 H 02/15/17 08:30 Pulse Oximetry 98 02/15/17 08:30 Oxygen Delivery Method Room Air Height/Weight/BMI: Height 1.57 m Weight 124.5 kg Body Mass Index 50.0 Results - Labs CBC & Chem 7: 02/11/17 10:27 02/11/17 10:27 Assessment and Plan (1) Status post reverse total arthroplasty of right shoulder Current visit: Yes Status: Acute (2) Morbid obesity with BMI of 45.0-49.9, adult Current visit: No Status: Chronic (3) Diabetes mellitus type 2 in obese Current visit: No Status: Chronic (4) Benign essential hypertension Current visit: No Status: Chronic (5) GERD (gastroesophageal reflux disease) Current visit: Yes Status: Chronic (6) Hypothyroidism (acquired) Current visit: Yes Status: Chronic (7) Hyperlipidemia Current visit: No Status: Chronic (8) Restless leg syndrome Current visit: No Status: Chronic (9) Near syncope Problem details: ECHO 1. Normal LV systolic function with ejection fraction of 55%. 2. Trace of mitral regurgitation. 3. Aortic sclerosis with trace of aortic insufficiency. 4. Trace of tricuspid regurgitation with estimated pulmonary artery systolic pressure of 35. Current visit: Yes Status: Acute Resuscitation Status: Full Code Assessment and Plan: Assessment S/P reverse total arthroplasty of right shoulder. Anemia, postop, acute Bilateral shoulder fracture secondary to mechanical fall, acute Morbid obesity with BMI greater than 45, chronic Diabetes, type II, chronic Hypertension, chronic GERD, chronic Acquired hypothyroidism, chronic Restless leg syndrome, chronic Fibromyalgia and chronic low back pain, chronic Depression, chronic Have independently interviewed and examined pt. Chart reviewed. Case discussed with my PA. Above care plan developed with my supervision; agree with above. Doing well this afternoon. Making good gains with therapy-hopeful for discharge to home tomorrow. Pain controlled; Percocet helping and pt tolerated it well. Eating well. Stools moving. No ab pain. Breathing well. No chest pain. Sugars controlled. Lungs: clear CV: regular AB: soft nt/nd +BS MSE: awake alert appropriate Plan: Nisoldipine stopped and amlodipine increased, along with increase of HCTZ from 12.5 to 25; creatinine and electrolytes have been stable. Continue glycemic control. Encourage therapy. Continue with IRU to maximize functional status. Medically stable for IRU floor care. Hospital Course Summary Disclaimer: The visit summary below is not to be considered part of the above Progress Note.
[2017-02-15] MEDS: INSULIN ASPART 100unit/ml INJECTION SQ PRN (14:28)
--- NOTE | 2017-02-15 16:06 | IRU Team Meeting ---
IRU Team Meeting - Nursing Vital Signs: Vital Signs - 24 hr 02/14/17 20:10 02/15/17 00:00 02/15/17 08:00 Temperature 97.9 F Pulse Rate 74 70 91 Respiratory Rate 18 Blood Pressure 162/78 H Pulse Oximetry 98 02/15/17 08:30 Temperature 98.3 F Pulse Rate 80 Respiratory Rate 18 Blood Pressure 139/98 H Pulse Oximetry 98 Current Medications: Amlodipine Besylate (Norvasc) 10 mg PO DAILY [facility] Calcium Carbonate (Tums) 1,000 mg PO Q2H PRN PRN Reason: Dyspepsia Cholecalciferol (Vit. D-3) 1,000 unit PO DAILY [facility] Last Admin: 02/15/17 09:13 Dose: 1,000 unit Enoxaparin Sodium (Lovenox) 40 mg SQ DAILY [facility] Last Admin: 02/15/17 09:17 Dose: 40 mg Gabapentin (Neurontin) 300 mg PO TID [facility] Last Admin: 02/15/17 09:14 Dose: 300 mg Insulin Aspart (Novolog) 0 unit SQ SS PRN; Protocol PRN Reason: Hyperglycemia Last Admin: 02/15/17 14:28 Dose: 1 unit Levothyroxine Sodium (Synthroid) 100 mcg PO ACB [facility] Last Admin: 02/15/17 06:10 Dose: 100 mcg Magnesium Oxide (Magox) 400 mg PO DAILY [facility] Last Admin: 02/15/17 09:14 Dose: 400 mg Metformin HCl (Glucophage) 500 mg PO BIDWM [facility] Last Admin: 02/15/17 09:14 Dose: 500 mg Nystatin (Mycostatin) 1 applic TP TID [facility] Last Admin: 02/15/17 09:17 Dose: 1 applic Oxycodone HCl (Roxicodone *Ir*) 5 mg PO 0600,1200 [facility] Last Admin: 02/15/17 12:15 Dose: 5 mg Oxycodone/Acetaminophen (Percocet 5/325) 1 - 2 tab PO Q4H PRN PRN Reason: Pain Last Admin: 02/15/17 14:33 Dose: 1 tab Ropinirole HCl (Requip) 0.25 mg PO 2100 [facility] Last Admin: 02/14/17 21:17 Dose: 0.25 mg Valsartan (Diovan Hct 80/12.5) 2 tab PO DAILY [facility] Venlafaxine HCl (Effexor) 37.5 mg PO BIDWM [facility] Last Admin: 02/15/17 09:14 Dose: 37.5 mg Comments: Irina continues to have discomfort in both shoulders. Megace to been adjusted. She is on amlodipine. She is using sliding scale insulin. Has been visiting with dietitian. She has been instructed in a calorie- controlled diet. Healthy meal choices and quantities discussed with patient by dietitian. - Physical Therapy Comments: She is being seen by physical therapy. She has met most of her goals. She is walking 222 feet independently. She is transferring well. Bed mobility is reasonably good. - Occupational Therapy Lower Body Dressing Comment: She is being seen by occupational therapy. Significant assistance is still required for dressing and toileting. will be present at home in order to assist with this. - Care Plan Anticipated Length of Stay: 1 Anticipated DC Destination: Home, Self Care Interventions/Goals: Barriers to dismissal: Pain in shoulders, reduced range of motion Goals: Safe dismissal tomorrow to her home. I certify that I personally led the interdisciplinary team meeting and agree with comments, barriers and goals indicated. Team meeting was held in the patient's room with the patient and the following family members present: , son.
--- NOTE | 2017-02-15 16:57 | Cardiology Progress Note ---
Subjective Principal diagnosis: near syncope <Kezia Walden - 02/15/17 16:57> Interval history: Irina is seen in the IRU dining room. She denies chest pain or pressure, dyspnea , palpitations, near syncope or dizziness today. <Kezia Walden - 02/15/17 18:00> Exam Vital signs: Temperature 98.5 F 02/16/17 16:00 Pulse Rate 84 02/16/17 16:00 Respiratory Rate 18 02/16/17 16:00 Blood Pressure 146/73 H 02/16/17 16:00 Pulse Oximetry 97 02/16/17 16:00 Oxygen Delivery Method Room Air <Sergio Camejo - 02/17/17 12:54> Temperature 98.3 F 02/15/17 08:30 Pulse Rate 80 02/15/17 08:30 Respiratory Rate 18 02/15/17 08:30 Blood Pressure 139/98 H 02/15/17 08:30 Pulse Oximetry 98 02/15/17 08:30 Oxygen Delivery Method Room Air <Kezia Walden - 02/15/17 16:57> - Constitutional no acute distress, obese, cooperative <Kezia Walden 02/15/17 16:57> - Routine HEENT Exam Head: Present: normocephalic <Kezia Walden 02/15/17 16:57> ENT: Present: mucous membranes moist <Kezia Walden 02/15/17 16:57> - Routine Neck Exam Absent: JVD, carotid bruit <Kezia Walden 02/15/17 16:57> - Routine Chest/Breast/Axilla Exam Chest wall: Absent: tenderness <Kezia Walden 02/15/17 16:57> - Routine Respiratory Exam Present: CTA bilaterally. Absent: rales, wheezes <Kezia Walden 02/15/17 16:57> - Routine Cardiovascular Exam Present: RRR, no murmur. Absent: JVD <Kezia Walden 02/15/17 16:57> - Routine Abdominal Exam Present: soft, normoactive bowel sounds <Kezia Walden 02/15/17 16:57> - Routine Extremities Exam Present: edema <Kezia Walden 02/15/17 16:57> - Routine Skin Exam Present: intact, dry, warm <Kezia Walden 02/15/17 16:57> - Routine Neurological Exam Present: alert, oriented X3 <Kezia Walden 02/15/17 16:57> - Routine Psychiatric Exam Present: normal affect, normal thought process <Kezia Walden 02/15/17 16: 57> Progress Note-A&P (1) Status post reverse total arthroplasty of right shoulder Status: Acute (2) Morbid obesity with BMI of 45.0-49.9, adult Status: Chronic (3) Diabetes mellitus type 2 in obese Status: Chronic (4) Benign essential hypertension Status: Chronic (5) Hyperlipidemia Status: Chronic (6) Near syncope Problem details: ECHO 1. Normal LV systolic function with ejection fraction of 55%. 2. Trace of mitral regurgitation. 3. Aortic sclerosis with trace of aortic insufficiency. 4. Trace of tricuspid regurgitation with estimated pulmonary artery systolic pressure of 35. Status: Acute <Sergio Camejo 02/17/17 12:54> (1) Status post reverse total arthroplasty of right shoulder Status: Acute (2) Diabetes mellitus type 2 in obese Status: Chronic (3) Benign essential hypertension Status: Chronic Assessment and plan: DC Amlodipine and start Nifedipine at 60mg daily. (4) Hyperlipidemia Status: Chronic (5) Morbid obesity with BMI of 45.0-49.9, adult Status: Chronic (6) Near syncope Problem details: ECHO 1. Normal LV systolic function with ejection fraction of 55%. 2. Trace of mitral regurgitation. 3. Aortic sclerosis with trace of aortic insufficiency. 4. Trace of tricuspid regurgitation with estimated pulmonary artery systolic pressure of 35. Status: Acute <Kezia Walden Deon 02/15/17 18:08> - Time Spent With Patient Total time spent is greater than 50% in coordination of care (as documented) at patient's floor/unit and/or counseling patient: <BashirSergio 02/17/17 12:54> Total time spent is greater than 50% in coordination of care (as documented) at patient's floor/unit and/or counseling patient: <Kezia Walden 02/15/17 16:57> less than 15 minutes <Kezia Walden 02/15/17 18:00> - Attestation Attestation Narrative: Recommendation After examining the patient I agree with the above assessment. I am involved in the formulation of the patient's plan of care. <Sergio Camejo - 02/17/17 12:54> Sepsis Assessment - Evaluation Sepsis screening result: No Definite Risk <Kezia Walden - 02/15/17 16:57> Hospital Course Summary Disclaimer: The visit summary below is not to be considered part of the above Progress Note. <Sergio Camejo - 02/17/17 12:54> The visit summary below is not to be considered part of the above Progress Note. <Kezia Walden - 02/15/17 16:57> Hospital Course: 02/09/17 13:53 IMPRESSION/PLAN: S/P reverse total arthroplasty of right shoulder. * Underwent surgery on right shoulder only by Dr. Hensley at [facility] on 02/03. Recommends follow up in clinic on or around 02/17. Patient family to call for appointment. * Agree with admission to IRU for intensive rehabilitation and close medical monitoring to improve strength and functional ability. Provide safe and supportive environment. Encourage participation in therapies. Pain control per Dr. Jordan. Bowel motivation to prevent constipation in light of narcotic pain medications. Lovenox for DVT prophylaxis. Anemia, post-op, acute. * Present prior to admission per records from [facility]. Hemoglobin on admission was 10.6. Patient remains asymptomatic. Continue to monitor trends and will recheck on 02/10 to monitor blood counts. Bilateral shoulder fractures secondary to mechanical fall, acute. * Bilateral shoulder fractures. No surgery to left shoulder. Keep right shoulder immobilized per records. Monitor surgical incision site for signs of infection in light of patient's morbid obesity and diabetes. Morbid obesity with BMI >45, chronic. * Carb controlled diet at 1800 cals. Consult dietary for additional recommendations. Obesity increases patient's risk for complications and infection. Monitor closely. Diabetes, Type II, chronic. * Continue home metformin. Monitor blood sugars closely and sliding scale insulin as indicated. Carb controlled diet at 1800kcal. Will recheck BMP on to monitor electrolytes and renal function. Hypertension, chronic. * Blood pressure stable. Monitor closely. Continue home medications including nisoldipine and Valsartan/HCTZ. Monitor daily weights for signs of fluid overload. GERD, chronic. * Continue home PPI for GI protection and GERD. Acquired hypothyroidism, chronic. * Continue home synthroid. Restless leg syndrome, chronic. * Continue home Requip. Pain control per Dr. Jordan. Fibromyalgia and chronic low back pain, chronic. * Pain control per Dr. Jordan. Depression, chronic. * Continue home Effexor. Upon discharge, patient's care is to be returned to her PCP, Dr. Cho. 02/10/17 Day #2 IRU Bilateral shoulder fractures secondary to fall * No surgery to left shoulder. Keep right shoulder immobilized per records. Diabetes, Type II, chronic. * Continue home metformin. Continue accucheks per Dr. Jordan and sliding scale insulin as indicated. Carb controlled diet at 1800kcal. Hypertension, chronic. * Monitor closely. Continue home medications including nisoldipine and Valsartan/HCTZ. GERD, chronic. * She declines PPI. Has TUMS ordered PRN. Consider starting PPI should she have increasing or continued symptoms. 02/11/17 Day #3 IRU Regarding episode of flushing, sweating, and lightheadedness, patient was placed on telemetry. CBC, BMP, troponin and TSH are pending. EKG and echocardiogram have been ordered by Dr. Richard and consult to Dr. Woodward has been placed. Phone call was made to Kezia Walden APRN to give her background on the patient. Patient informed and is agreeable. Other chronic problems are stable. 02/11/17 -Cardiology Near syncope: Patient reports feeling as if she was having a hotflash. Her vision blurred, she felt dizzy, and like she was going to "pass out." V/S stable, BS stable, resolved quickly without intervention. EKG benign, Troponin negative, echo pending. Continue to monitor telemetry. HTN: suboptimal control. Start Amlodipine 5mg daily 02/13/17 day #5 IRU S/P reverse total arthroplasty of right shoulder. Bilateral shoulder fractures secondary to mechanical fall, acute. Anemia, post-op, acute. Stable. Near syncope. NSR on tele. Echo/EKG without acute findings. Cont tele. Diabetes, Type II, chronic. BGM under good control. Hypertension, chronic. Elevated BP - amlodipine added to med list (now on 2 CCB ) - d/w Kezia Walden APRN - she will review. 02/15/17 day #7 IRU Will DC the nisoldipine and increase amlodipine to 10 mg. Will also increase her valsartan/HCTZ from 160/12.5 to 160/25. If this doesn't control her pressures, would consider adding in another agent. DC telemetry. Reviewed telemetry, she has essentially been in normal sinus rhythm or sinus tach with rates ranging from 60s to 150s at the highest. Cardiology has seen her for her near-syncope complaints and doesn't recommend further workup beyond what has been done during her stay. Would recommend repeat BMP on an outpatient basis in a month. 02/15/17 17:56 -Cardiology Suboptimal BP control:DC Amlodipine and start Nifedipine at 60mg daily. <Kezia Walden - 02/15/17 18:10>
[2017-02-15] MEDS: ROPINIROLE 0.25 MG TABLET PO SCH (20:46)
[2017-02-16] MEDS: Oxycodone *IR* 5 MG TABLET PO SCH ×2 (07:19→12:24)
[2017-02-16] MEDS: LEVOTHYROXINE 100 MCG TABLET PO SCH (07:19)
--- NOTE | 2017-02-16 08:42 | Discharge Instructions ---
Discharge Plan - Med Rec/Dispo Referrals/Follow Up: James Cho MD [Family Provider] - Additional Instructions: Your valsartan/HCTZ (Diovan HCTZ) prescription was changed to 160/25 from 160/ 12.5 for improved blood pressure control. Your nisoldipine (Sular) was discontinued and your were started on Nifedipine instead. Monitor blood pressures and follow up with your regular provider in 1 month. Recommend you get a BMP (basic metabolic profile) blood test to check your kidney function and electrolytes given these medication changes. Prescriptions: New NIFEdipine XL [Procardia Xl] 60 mg PO DAILY #30 tablet Magnesium Oxide [Magox] 400 mg PO DAILY tablet Valsartan/Hydrochlorothiazide [Valsartan-Hctz 160-25 mg Tab] 1 each PO DAILY #30 tablet Continue Levothyroxine Tab [Synthroid] 0.1 mg PO ACB #0 Gabapentin 300 mg PO TID Oxycodone HCl/Acetaminophen [Percocet 5-325 mg Tablet] 1 - 2 tab PO Q4HPRN PRN PRN Reason: Pain Cholecalciferol (Vitamin D3) [Vitamin D3] 1 tab PO DAILY ropinirole 0.25 mg tablet 0.25 mg PO HS 90 Days tab venlafaxine ER 37.5 mg capsule,extended release 24 hr 37.5 tab PO BID 90 Days #90 metformin 500 mg tablet 500 mg PO BIDWM tab Discontinued Magnesium 30 mg PO DAILY Valsartan/Hctz 160/12.5 [Diovan Hct 160/12.5] 1 tab PO DAILY nisoldipine ER 17 mg tablet,extended release 24 hr 17 mg PO DAILY 90 Days #90
[2017-02-16] MEDS: MAGNESIUM OXIDE 400 MG TABLET PO SCH (08:52)
[2017-02-16] MEDS: VENLAFAXINE 37.5 MG TABLET PO SCH (08:53)
[2017-02-16] MEDS: METFORMIN 500 MG TABLET PO SCH (08:53)
[2017-02-16] MEDS: GABAPENTIN 300 MG CAPSULE PO SCH ×2 (08:53→14:52)
[2017-02-16] MEDS: ENOXAPARIN 40 MG/0.4 ML INJECTION SQ SCH (08:55)
[2017-02-16] MEDS ORDERED: AMLODIPINE 10 MG TABLET PO SCH (09:00)
--- NOTE | 2017-02-16 12:42 | IRU Progress Note ---
- Subjective/Serverity of Illness Irina was evaluated in her room and is doing well. She is anxious to get home. Continues to require assistance with upper extremity dressing due to her bilateral shoulder fractures. will be home and able to help her in this regard. She has had no further episodes of near syncope or hot flashes. Telemetry was discontinued. Echocardiogram was unremarkable with good ejection fraction of 55% . Her blood sugars have been noted. She is on metformin at home. Her blood pressure is been elevated. The valsartan/HCTZ dose was increased and her amlodipine dose was increased to 10 mg daily. She'll be dismissed today. Has department to see her orthopedic surgeon in [place] in a couple of days. Exam Vital Signs: Temperature 97.6 F 02/16/17 07:37 Pulse Rate 75 02/16/17 07:37 Respiratory Rate 16 02/16/17 07:37 Blood Pressure 128/69 02/16/17 07:37 Pulse Oximetry 94 02/16/17 07:37 Oxygen Delivery Method Room Air Height/Weight/BMI: Height 1.57 m Weight 120.2 kg Body Mass Index 50.0 - Constitutional Present: no acute distress Comments: The patient is awake, alert and oriented and in no acute distress. Pupils are equal. The neck is supple. Chest: Clear to auscultation bilaterally. Cor: RR with no gallop, click nor murmur Abd: soft with normo-active bowel sounds. There are no masses, no tenderness and no guarding. Extremities: No edema is noted. Results IRU - Labs Labs: Reviewed her blood sugars. She is back on metformin. Sepsis Assessment - Evaluation Sepsis screening result: No Definite Risk IRU A/P (1) Status post reverse total arthroplasty of right shoulder Current visit: Yes Status: Acute Shoulder seems to be doing well. It has remained in the immobilizing sling. Does have discomfort. We will send her home on some pain medication. (2) Morbid obesity with BMI of 45.0-49.9, adult Current visit: No Status: Chronic (3) Diabetes mellitus type 2 in obese Current visit: No Status: Chronic Blood sugars are stable on metformin twice daily. (4) Benign essential hypertension Current visit: No Status: Chronic Blood pressure has been elevated. Her dose of valsartan/HCTZ was increased. She is now on amlodipine as well at 10 mg daily. (5) GERD (gastroesophageal reflux disease) Qualifiers: Esophagitis presence: without esophagitis Qualified Code(s): K21.9 - Gastro -esophageal reflux disease without esophagitis Current visit: Yes Status: Chronic (6) Hypothyroidism (acquired) Current visit: Yes Status: Chronic (7) Hyperlipidemia Qualifiers: Hyperlipidemia type: other hyperlipidemia Qualified Code(s): E78.4 - Other hyperlipidemia Current visit: No Status: Chronic (8) Restless leg syndrome Current visit: No Status: Chronic DVT Prophylaxis: Lovenox Resuscitation Status: Full Code - Course Hospital Course: Eddie Jordan MD: 02/09/17 10:39 Just getting started with therapies. Pain is reasonably well controlled. Blood sugars stable at 122. Blood pressure elevated and we will monitor. 02/10/17 11:48 Patient is tearful and fearful regarding dressing because of pain in the right shoulder. Pain management will be modified in this regard and give her Percocet prior to each therapy session. We will monitor her blood pressures which are running too high at present. Initiate blood glucose monitoring 3 times daily. 02/14/17 11:21 Continues to work on upper and lower extremity dressing as well as transfers. She is improving with regard to therapies. 02/15/17 11:34 She is improving with therapy. Blood sugars are reviewed and are stable. Had a difficult night with regard to discomfort in the shoulders. She is on pain medication. She wondered when nalini can be removed and we will check into this. 02/16/17 12:41 She has done well with therapy. She will continue to require assistance with dressing because the bilateral shoulder fracture. Subsequently as she is able to do more from an orthopedic standpoint she can pursue further OT and PT as an outpatient. - Interventions to Obtain Goals PT Treatment Plan: Balance/Proprioception, Functional Activities, Gait Training , Patient/Family Education, Therapeutic Exercise OT Treatment Plan: ADL (Basic Care), Balance Training, IADL, Pt./Family Education, Ther. Exercise for ADL
--- NOTE | 2017-02-16 12:48 | Discharge Instructions ---
Discharge Plan - Med Rec/Dispo Referrals/Follow Up: James Cho MD [Family Provider] - (Dr. Neo Cho on 02/22/17 at 11:00 am. for Hosp. follow-up. Check in at 10:30 am. #[phone]. [address] [place] [address]) Additional Instructions: Your valsartan/HCTZ (Diovan HCTZ) prescription was changed to 160/25 from 160/ 12.5 for improved blood pressure control. Your nisoldipine (Sular) was discontinued and your were started on Nifedipine instead. Monitor blood pressures and follow up with your regular provider in 1 month. Recommend you get a BMP (basic metabolic profile) blood test to check your kidney function and electrolytes given these medication changes. Prescriptions: New NIFEdipine XL [Procardia Xl] 60 mg PO DAILY #30 tablet Magnesium Oxide [Magox] 400 mg PO DAILY tablet Valsartan/Hydrochlorothiazide [Valsartan-Hctz 160-25 mg Tab] 1 each PO DAILY #30 tablet Continue Levothyroxine Tab [Synthroid] 0.1 mg PO ACB #0 Gabapentin 300 mg PO TID Cholecalciferol (Vitamin D3) [Vitamin D3] 1 tab PO DAILY ropinirole 0.25 mg tablet 0.25 mg PO HS 90 Days tab venlafaxine ER 37.5 mg capsule,extended release 24 hr 37.5 tab PO BID 90 Days #90 metformin 500 mg tablet 500 mg PO BIDWM tab Changed Oxycodone HCl/Acetaminophen [Percocet 5-325 mg Tablet] 1 tab PO Q6H PRN #60 tablet PRN Reason: Pain Discontinued Magnesium 30 mg PO DAILY Valsartan/Hctz 160/12.5 [Diovan Hct 160/12.5] 1 tab PO DAILY nisoldipine ER 17 mg tablet,extended release 24 hr 17 mg PO DAILY 90 Days #90 Discharge Instructions/Outpatient Orders: Final Provider Discharge Instructions Location: Determined By Patient - Disposition 01 Discharged Home, Self-Care
--- NOTE | 2017-02-16 13:50 | Discharge Summary ---
Discharge Information Date of admission: 02/08/17 17:38 Anticipated date of discharge: 02/16/17 Attending Physician: Eddie Jordan MD Primary care physician: James Cho MD Consults: 02/08/17 18:42 Physician Consult [CONS] Routine Consulting Provider: Cody Falk Reason For Exam: Medical management Ordering Provider has Notified Pin Game Machine Inspector: Nellie 02/09/17 01:17 Dietary Consult [CONS] Routine Comment: Reason For Exam: 02/11/17 09:04 Physician Consult [CONS] Routine Consulting Provider: Sergio Camejo Reason For Exam: flushing episodes with syncope Ordering Provider has Notified Pin Game Machine Inspector: Yes Comment: Talked with Kezia Walden re: patient - Discharge Diagnosis Discharge Diagnosis: 1. Bilateral shoulder fractures 2. S/P right reverse total shoulder arthroplasty 3. Morbid Obesity (BMI: 48.5) 4. Diabetes Mellitus type 2, not controlled, not on assisted insulin 5. Benign essential hypertension 6. Restless Leg Syndrome 7. Near syncope - Laboratory Labs: 02/11/17 10:27 02/11/17 10:27 History of Present Illness HPI: 02/16/17 13:49 This very pleasant 66-year-old female tripped over a dog leash at home on 2016. This resulted in bilateral shoulder fractures. She was sent to [place] where she was seen by Dr. Hensley. He performed a reverse right total shoulder arthroplasty on 02/03/2017. Has significant pain in the shoulders. Patient has other medical conditions including morbid obesity, diabetes mellitus , and hypertension. Also has restless leg syndrome hypothyroidism reflux esophagitis. She was felt to be a good candidate for acute inpatient rehabilitation for physical therapy, occupational therapy, 24 hour rehabilitation nursing and medical management of numerous medical conditions. Hospital Course This is a general summary of the patient's hospital course. For more details refer to the complete medical record. Irina was admitted to the acute inpatient rehabilitation unit on 02/08/2017 for an intensive individualized program of occupational therapy, physical therapy, dietary management and medical management of her medical conditions. She improved on this regimen. She continued to require maximal assist for bathing, total assistance for toileting, but minimal assistance for lower body dressing. She was independent for ambulation. Car transfers were standby assistance. Medically we monitored her blood sugars. She was on a sliding scale insulin for a while and then placed back on her oral agents. She did have an episode of near syncope with profuse sweating etc. She was seen in consultation by Dr. Camejo. Telemetry was performed along with echocardiogram. Echo was unremarkable with good ejection fraction of 55% and minimal valve issues. Telemetry demonstrated normal sinus rhythm without evidence of arrhythmia. She did not completely pass out but just felt lightheaded. Etiology was unclear but may be related to menopausal symptomatology. Her blood pressure was not well controlled. Her valsartan/HCTZ dose was increased and she was switched to amlodipine 10 mg daily as well. The patient continues to require oxycodone around 4-6 tablets daily. We encouraged her to limit this to 4 tablets daily. She is dismissed in improved and stable condition on 02/16/2017 to the care of her . will be available at home to assist with upper body dressing in view of her continued limitation on movement of both shoulders. She does have an appointment to see her surgeon in the next several days in [place]. As restrictions are lifted she would probably qualify in the future for additional physical therapy and occupational therapy particularly with regards to upper body dressing at some point. She will also follow-up with her primary care physician Dr. James Cho for medical management. Hospital course: 02/09/17 13:53 IMPRESSION/PLAN: S/P reverse total arthroplasty of right shoulder. * Underwent surgery on right shoulder only by Dr. Hensley at [place] on 02/03. Recommends follow up in clinic on or around 02/17. Patient family to call for appointment. * Agree with admission to IRU for intensive rehabilitation and close medical monitoring to improve strength and functional ability. Provide safe and supportive environment. Encourage participation in therapies. Pain control per Dr. Jordan. Bowel motivation to prevent constipation in light of narcotic pain medications. Lovenox for DVT prophylaxis. Anemia, post-op, acute. * Present prior to admission per records from [place]. Hemoglobin on admission was 10.6. Patient remains asymptomatic. Continue to monitor trends and will recheck on 02/10 to monitor blood counts. Bilateral shoulder fractures secondary to mechanical fall, acute. * Bilateral shoulder fractures. No surgery to left shoulder. Keep right shoulder immobilized per records. Monitor surgical incision site for signs of infection in light of patient's morbid obesity and diabetes. Morbid obesity with BMI >45, chronic. * Carb controlled diet at 1800 cals. Consult dietary for additional recommendations. Obesity increases patient's risk for complications and infection. Monitor closely. Diabetes, Type II, chronic. * Continue home metformin. Monitor blood sugars closely and sliding scale insulin as indicated. Carb controlled diet at 1800kcal. Will recheck BMP on to monitor electrolytes and renal function. Hypertension, chronic. * Blood pressure stable. Monitor closely. Continue home medications including nisoldipine and Valsartan/HCTZ. Monitor daily weights for signs of fluid overload. GERD, chronic. * Continue home PPI for GI protection and GERD. Acquired hypothyroidism, chronic. * Continue home synthroid. Restless leg syndrome, chronic. * Continue home Requip. Pain control per Dr. Jordan. Fibromyalgia and chronic low back pain, chronic. * Pain control per Dr. Jordan. Depression, chronic. * Continue home Effexor. Upon discharge, patient's care is to be returned to her PCP, Dr. Cho. 02/10/17 Day #2 IRU Bilateral shoulder fractures secondary to fall * No surgery to left shoulder. Keep right shoulder immobilized per records. Diabetes, Type II, chronic. * Continue home metformin. Continue accucheks per Dr. Jordan and sliding scale insulin as indicated. Carb controlled diet at 1800kcal. Hypertension, chronic. * Monitor closely. Continue home medications including nisoldipine and Valsartan/HCTZ. GERD, chronic. * She declines PPI. Has TUMS ordered PRN. Consider starting PPI should she have increasing or continued symptoms. 02/11/17 Day #3 IRU Regarding episode of flushing, sweating, and lightheadedness, patient was placed on telemetry. CBC, BMP, troponin and TSH are pending. EKG and echocardiogram have been ordered by Dr. Richard and consult to Dr. Woodward has been placed. Phone call was made to Kezia Walden APRN to give her background on the patient. Patient informed and is agreeable. Other chronic problems are stable. 02/11/17 -Cardiology Near syncope: Patient reports feeling as if she was having a hotflash. Her vision blurred, she felt dizzy, and like she was going to "pass out." V/S stable, BS stable, resolved quickly without intervention. EKG benign, Troponin negative, echo pending. Continue to monitor telemetry. HTN: suboptimal control. Start Amlodipine 5mg daily 02/13/17 day #5 IRU S/P reverse total arthroplasty of right shoulder. Bilateral shoulder fractures secondary to mechanical fall, acute. Anemia, post-op, acute. Stable. Near syncope. NSR on tele. Echo/EKG without acute findings. Cont tele. Diabetes, Type II, chronic. BGM under good control. Hypertension, chronic. Elevated BP - amlodipine added to med list (now on 2 CCB ) - d/w Kezia Walden APRN - she will review. 02/15/17 day #7 IRU Will DC the nisoldipine and increase amlodipine to 10 mg. Will also increase her valsartan/HCTZ from 160/12.5 to 160/25. If this doesn't control her pressures, would consider adding in another agent. DC telemetry. Reviewed telemetry, she has essentially been in normal sinus rhythm or sinus tach with rates ranging from 60s to 150s at the highest. Cardiology has seen her for her near-syncope complaints and doesn't recommend further workup beyond what has been done during her stay. Would recommend repeat BMP on an outpatient basis in a month. 02/15/17 17:56 -Cardiology Suboptimal BP control:DC Amlodipine and start Nifedipine at 60mg daily. Time spent with patient: 25 - 35 minutes Discharge Plan - Med Rec/Dispo Referrals/Follow Up: James Cho MD [Family Provider] - (Dr. Neo Cho on 02/22/17 at 11:00 am. for Hosp. follow-up. Check in at 10:30 am. #[phone]. [address] [place] [address]) Additional Instructions: Your valsartan/HCTZ (Diovan HCTZ) prescription was changed to 160/25 from 160/ 12.5 for improved blood pressure control. Your nisoldipine (Sular) was discontinued and your were started on Nifedipine instead. Monitor blood pressures and follow up with your regular provider in 1 month. Recommend you get a BMP (basic metabolic profile) blood test to check your kidney function and electrolytes given these medication changes. Prescriptions: New NIFEdipine XL [Procardia Xl] 60 mg PO DAILY #30 tablet Magnesium Oxide [Magox] 400 mg PO DAILY tablet Valsartan/Hydrochlorothiazide [Valsartan-Hctz 160-25 mg Tab] 1 each PO DAILY #30 tablet Continue Levothyroxine Tab [Synthroid] 0.1 mg PO ACB #0 Gabapentin 300 mg PO TID Cholecalciferol (Vitamin D3) [Vitamin D3] 1 tab PO DAILY ropinirole 0.25 mg tablet 0.25 mg PO HS 90 Days tab venlafaxine ER 37.5 mg capsule,extended release 24 hr 37.5 tab PO BID 90 Days #90 metformin 500 mg tablet 500 mg PO BIDWM tab Changed Oxycodone HCl/Acetaminophen [Percocet 5-325 mg Tablet] 1 tab PO Q6H PRN #60 tablet PRN Reason: Pain Discontinued Magnesium 30 mg PO DAILY Valsartan/Hctz 160/12.5 [Diovan Hct 160/12.5] 1 tab PO DAILY nisoldipine ER 17 mg tablet,extended release 24 hr 17 mg PO DAILY 90 Days #90 Discharge Instructions/Outpatient Orders: Final Provider Discharge Instructions Location: Determined By Patient
[2017-02-16 16:33] VITALS: BP 146/73; PULSE 84; RESP 18; TEMP 98.5; O2SAT 97
== END 2017-02-16 16:23 | disposition home or self-care (01) | DRG 560 ==
PROVIDERS: ADMIT Internal Medicine; ATTEND Internal Medicine